=== PATIENT | female | born 1940 | race Caucasian/White ===

== ENCOUNTER 2019-08-15 16:08 | Inpatient (IN) ==
[2019-08-15 17:52] LABS: Apearance,Urine CLEAR (Clear); Bilirubin,Urine Negative (Negative); Blood, Urine Negative (Negative); Glucose,Urine (UA) Negative (Negative); Ketones,Urine Negative (Negative); Mucus,Urine Occasional /LPF (Occasional); Nitrite,Urine Negative (Negative); Protein,Urine Negative; RBC,Urine 1 /HPF (0-4); Squamous Epithelial Cell,Urine Occasional /HPF (0-10); Urine Color Yellow (Yellow); Urine Specific Gravity 1.021 (1.001-1.035); WBC,Urine 1 /HPF (0-6)
[2019-08-15 18:33] LABS: Albumin 2.9 G/DL (3.4-5.0); Bilirubin,Total 0.6 MG/DL (0.2-1.0); Calcium 7.8 MG/DL (8.5-10.1); Osmolality,Calculated 274.8 MOS/KG (273-304); Total Protein 6.8 G/DL (6.4-8.3)
[2019-08-15 18:41] LABS: Basophils % 0.2 % (0.0-0.8); Eosinophils # 0.1 10*3/uL (0.0-0.87); Eosinophils % 0.3 % (0.00-10.9); Hematocrit 33.9 VOL% (35.7-47.0); Hemoglobin 10.6 GM/DL (12.0-16.0); Immature Granulocytes % 0.5 %; Immature Granulocytes Absolute 0.09 #; Lymphocytes # 2.2 10*3/uL (1.4-4.0); Lymphocytes % 12.7 % (21.3-54.2); Mean Corpuscular HGB Conc 31.3 GM/DL (32-36); Mean Corpuscular Volume 89.4 FL (87-102); Mean Platelet Volume 9.4 FL (9.6-12.0); Monocytes % 10.3 % (1.7-12.7); Platelet Count 306 T/CUMM (130-400); Red Blood Count 3.79 MC/CUMM (3.8-5.5); Red Cell Distribution Width 17.7 % (9.3-17.3); White Blood Count 17.1 T/CUMM (4-12)
[2019-08-15] MEDS ORDERED: HYDROmorphone 2 MG/1 ML VIAL IV ONE (18:47)
[2019-08-15] MEDS ORDERED: KETOROLAC 30 MG/1 ML VIAL IV STA (18:47)
[2019-08-15] MEDS ORDERED: ONDANSETRON 4 MG/2 ML VIAL IV STA ×2 (18:47→19:23)
[2019-08-15 20:42] LABS: PT Patient Result 10.7 SECS (9.6-12.2)
[2019-08-15] MEDS ORDERED: METHOCARBAMOL 500 MG TABLET PO PRN (21:27)
[2019-08-15] MEDS ORDERED: ACETAMINOPHEN 325 MG TABLET PO PRN (21:27)
[2019-08-15] MEDS ORDERED: INFLUENZA VIRUS VACCINE 0.5 ML SYRINGE IM ONE (21:52)
[2019-08-15] MEDS: SODIUM CHLORIDE 0.9% 1,000 ML IV SCH (22:24)
[2019-08-15] MEDS: FLUTICASONE 220 MCG/PUFF INHALER 12 GM INH SCH (22:44)
[2019-08-15] MEDS: VENLAFAXINE 75 MG TABLET PO SCH (22:45)
[2019-08-15] MEDS: PRIMIDONE 50 MG TABLET PO SCH (22:45)
[2019-08-15] MEDS: predniSONE 5 MG TABLET PO SCH (22:45)
[2019-08-15] MEDS: THEOPHYLLINE ER 300 MG TABLET PO SCH (22:46)
[2019-08-15] MEDS: SIMVASTATIN 20 MG TABLET PO SCH (22:46)
[2019-08-15] MEDS: MEMANTINE 10 MG TABLET PO SCH (22:46)
[2019-08-15] MEDS: DONEPEZIL 10 MG TABLET PO SCH (22:46)
[2019-08-15] MEDS: CALCIUM (CARBONATE)/VITAMIN D 600 MG-400 UNIT TABLET PO SCH (22:46)
[2019-08-16] MEDS: HYDROmorphone 2 MG/1 ML VIAL IV PRN ×4 (01:29→21:12)
[2019-08-16] MEDS: PROMETHAZINE 25 MG/1 ML VIAL IM PRN (05:25)
[2019-08-16 05:44] LABS: Basophils % 0.1 % (0.0-0.8); Basophils % 0.3 % (0.0-0.8); Eosinophils # 0.2 10*3/uL (0.0-0.87); Eosinophils % 1.1 % (0.00-10.9); Eosinophils % 1.2 % (0.00-10.9); Hematocrit 33.9 VOL% (35.7-47.0); Hemoglobin 10.2 GM/DL (12.0-16.0); Hemoglobin 10.4 GM/DL (12.0-16.0); Immature Granulocytes % 0.5 %; Immature Granulocytes % 1.4 %; Immature Granulocytes Absolute 0.07 #; Lymphocytes # 1.9 10*3/uL (1.4-4.0); Lymphocytes % 13.5 % (21.3-54.2); Lymphocytes % 13.7 % (21.3-54.2); Mean Corpuscular HGB Conc 30.7 GM/DL (32-36); Mean Corpuscular Volume 90.4 FL (87-102); Mean Corpuscular Volume 91.9 FL (87-102); Mean Platelet Volume 10.1 FL (9.6-12.0); Mean Platelet Volume 10.2 FL (9.6-12.0); Monocytes % 10.1 % (1.7-12.7); Monocytes % 10.2 % (1.7-12.7); Neutrophils % 73.8 % (38.7-73.9); Neutrophils % 74.1 % (38.7-73.9); Platelet Count 304 T/CUMM (130-400); Platelet Count 310 T/CUMM (130-400); Red Blood Count 3.75 MC/CUMM (3.8-5.5); Red Cell Distribution Width 17.9 % (9.3-17.3); White Blood Count 14.1 T/CUMM (4-12)
[2019-08-16] MEDS: LEVOTHYROXINE 137 MCG TABLET PO SCH (05:54)
[2019-08-16 06:17] LABS: % Iron Saturation 12.1 % (18-50); Ferritin 17.7 ng/ml (8-252)
[2019-08-16 06:26] LABS: Folate 16.5 NG/ML (5.4-24.0); Vitamin B12 308 PG/ML (211-911)
[2019-08-16 06:30] LABS: Calcium 8.3 MG/DL (8.5-10.1); Osmolality,Calculated 277.7 MOS/KG (273-304); Thyroid Stimulating Hormone 4.15 uIU/ml (0.358-3.74)
[2019-08-16 07:42] LABS: Sedimentation Rate-Westergren 93 MM/HR (0-30)
[2019-08-16] MEDS ORDERED: FOLIC ACID 0.4 MG TABLET PO SCH (09:00)
[2019-08-16] MEDS ORDERED: KRILL OM DHA EPA PHOSPHO AST PO SCH (09:00)
[2019-08-16 11:06] LABS: Hemoglobin A1 (Alkaline) 96.9 % (96.5-98.5); Hemoglobin A2 (Alkaline) 3.1 % (1.5-3.5)
[2019-08-16] MEDS ORDERED: LIDOCAINE 2% 5 ML VIAL ONE ×2 (11:06→11:37)
[2019-08-16] MEDS ORDERED: fentaNYL 100 MCG/2 ML VIAL ONE (12:04)
[2019-08-16] MEDS ORDERED: propofoL 200 MG/20 ML VIAL IV ONE (12:04)
[2019-08-16] MEDS: MULTIVITAMIN (CENTRUM) TABLET PO SCH (13:08)
[2019-08-16] MEDS: THEOPHYLLINE ER 300 MG TABLET PO SCH ×2 (13:08→21:13)
[2019-08-16] MEDS: VENLAFAXINE 75 MG TABLET PO SCH ×2 (13:10→21:14)
[2019-08-16] MEDS: MEMANTINE 10 MG TABLET PO SCH ×2 (13:11→21:15)
[2019-08-16] MEDS: FUROSEMIDE 40 MG TABLET PO SCH (13:11)
[2019-08-16] MEDS: PANTOPRAZOLE 40 MG TABLET PO SCH (13:11)
[2019-08-16] MEDS: PRIMIDONE 50 MG TABLET PO SCH ×2 (13:11→21:13)
[2019-08-16] MEDS: LEVOFLOXACIN INJ 750 MG in PREMIX 1 EACH IV SCH (14:15)
[2019-08-16] MEDS: FOLIC ACID 1 MG TABLET PO SCH (14:17)
[2019-08-16] MEDS: FLUTICASONE 220 MCG/PUFF INHALER 12 GM INH SCH ×2 (16:34→21:14)
[2019-08-16] MEDS: SODIUM CHLORIDE 0.9% 1,000 ML IV SCH (20:59)
[2019-08-16] MEDS: predniSONE 5 MG TABLET PO SCH (21:14)
[2019-08-16] MEDS: CALCIUM (CARBONATE)/VITAMIN D 600 MG-400 UNIT TABLET PO SCH (21:14)
[2019-08-16] MEDS: SIMVASTATIN 20 MG TABLET PO SCH (21:14)
[2019-08-16] MEDS: DONEPEZIL 10 MG TABLET PO SCH (21:14)
[2019-08-16] MEDS: ONDANSETRON 4 MG/2 ML VIAL IV PRN (21:23)
[2019-08-17] MEDS: HYDROmorphone 2 MG/1 ML VIAL IV PRN ×4 (01:11→17:38)
[2019-08-17] MEDS: ONDANSETRON 4 MG/2 ML VIAL IV PRN ×3 (01:13→15:36)
[2019-08-17] MEDS: LEVOTHYROXINE 137 MCG TABLET PO SCH (05:29)
[2019-08-17 05:41] LABS: Basophils # 0.1 10*3/uL (0.0-0.2); Basophils % 0.5 % (0.0-0.8); Eosinophils # 0.2 10*3/uL (0.0-0.87); Hematocrit 35.6 VOL% (35.7-47.0); Hemoglobin 11.1 GM/DL (12.0-16.0); Immature Granulocytes % 0.8 %; Immature Granulocytes Absolute 0.09 #; Lymphocytes % 17.8 % (21.3-54.2); Mean Corpuscular HGB Conc 31.2 GM/DL (32-36); Mean Corpuscular Volume 88.8 FL (87-102); Mean Platelet Volume 9.9 FL (9.6-12.0); Neutrophils % 67.9 % (38.7-73.9); Platelet Count 303 T/CUMM (130-400); Red Blood Count 4.01 MC/CUMM (3.8-5.5); Red Cell Distribution Width 17.1 % (9.3-17.3)
[2019-08-17 06:14] LABS: Calcium 8.5 MG/DL (8.5-10.1); Osmolality,Calculated 261.7 MOS/KG (273-304)
[2019-08-17] MEDS: FOLIC ACID 1 MG TABLET PO SCH (09:15)
[2019-08-17] MEDS: MULTIVITAMIN (CENTRUM) TABLET PO SCH (09:15)
[2019-08-17] MEDS: PANTOPRAZOLE 40 MG TABLET PO SCH (09:15)
[2019-08-17] MEDS: FUROSEMIDE 40 MG TABLET PO SCH (09:16)
[2019-08-17] MEDS: VENLAFAXINE 75 MG TABLET PO SCH ×2 (09:16→21:36)
[2019-08-17] MEDS: THEOPHYLLINE ER 300 MG TABLET PO SCH ×2 (09:16→21:37)
[2019-08-17] MEDS: PRIMIDONE 50 MG TABLET PO SCH ×2 (09:18→21:53)
[2019-08-17] MEDS: MEMANTINE 10 MG TABLET PO SCH ×2 (09:19→21:35)
[2019-08-17] MEDS: FLUTICASONE 220 MCG/PUFF INHALER 12 GM INH SCH ×2 (09:21→21:33)
[2019-08-17] MEDS: POTASSIUM CHLORIDE 20 MEQ/15 ML UDCUP PER TUBE PRN ×3 (09:23→16:27)
[2019-08-17] MEDS: LEVOFLOXACIN INJ 750 MG in PREMIX 1 EACH IV SCH (12:08)
[2019-08-17] MEDS: ALBUTEROL/IPRATROPIUM 3 ML NEB RESP TX SCH ×2 (13:19→20:32)
[2019-08-17] MEDS ORDERED: BISACODYL 5 MG TABLET PO ONE (15:18)
[2019-08-17] MEDS ORDERED: SODIUM PHOSPHATE ENEMA 133 ML BOTTLE RECTAL ONE (15:19)
[2019-08-17] MEDS: DOCUSATE SODIUM 100 MG CAPSULE PO PRN (15:35)
[2019-08-17] MEDS: PROMETHAZINE 25 MG/1 ML VIAL IM PRN (17:40)
[2019-08-17] MEDS: CALCIUM (CARBONATE)/VITAMIN D 600 MG-400 UNIT TABLET PO SCH (21:36)
[2019-08-17] MEDS: predniSONE 5 MG TABLET PO SCH (21:38)
[2019-08-17] MEDS: SIMVASTATIN 20 MG TABLET PO SCH (21:38)
[2019-08-17] MEDS: DONEPEZIL 10 MG TABLET PO SCH (21:40)
[2019-08-18] MEDS: HYDROmorphone 2 MG/1 ML VIAL IV PRN (00:58)
[2019-08-18] MEDS: PROMETHAZINE 25 MG/1 ML VIAL IM PRN (00:59)
[2019-08-18] MEDS: ALBUTEROL/IPRATROPIUM 3 ML NEB RESP TX SCH ×2 (02:31→07:21)
[2019-08-18] MEDS: ONDANSETRON 4 MG/2 ML VIAL IV PRN ×2 (05:09→10:31)
[2019-08-18] MEDS: LEVOTHYROXINE 137 MCG TABLET PO SCH (05:54)
[2019-08-18 07:13] LABS: Basophils % 0.3 % (0.0-0.8); Eosinophils # 0.2 10*3/uL (0.0-0.87); Eosinophils % 1.8 % (0.00-10.9); Hematocrit 35.2 VOL% (35.7-47.0); Lymphocytes # 1.6 10*3/uL (1.4-4.0); Lymphocytes % 17.1 % (21.3-54.2); Mean Corpuscular HGB Conc 31.3 GM/DL (32-36); Mean Corpuscular Volume 88.7 FL (87-102); Mean Platelet Volume 9.5 FL (9.6-12.0); Monocytes % 10.3 % (1.7-12.7); Neutrophils % 69.5 % (38.7-73.9); Platelet Count 342 T/CUMM (130-400); Red Blood Count 3.97 MC/CUMM (3.8-5.5); Red Cell Distribution Width 17.2 % (9.3-17.3); White Blood Count 9.5 T/CUMM (4-12)
[2019-08-18 07:28] LABS: Calcium 8.7 MG/DL (8.5-10.1); Osmolality,Calculated 264.4 MOS/KG (273-304)
[2019-08-18] MEDS: PRIMIDONE 50 MG TABLET PO SCH (08:50)
[2019-08-18] MEDS: PANTOPRAZOLE 40 MG TABLET PO SCH (08:51)
[2019-08-18] MEDS: VENLAFAXINE 75 MG TABLET PO SCH (08:51)
[2019-08-18] MEDS: FOLIC ACID 1 MG TABLET PO SCH (08:51)
[2019-08-18] MEDS: DOCUSATE SODIUM 100 MG CAPSULE PO PRN (08:51)
[2019-08-18] MEDS: FUROSEMIDE 40 MG TABLET PO SCH (08:52)
[2019-08-18] MEDS: MULTIVITAMIN (CENTRUM) TABLET PO SCH (08:52)
[2019-08-18] MEDS: FLUTICASONE 220 MCG/PUFF INHALER 12 GM INH SCH (08:52)
[2019-08-18] MEDS: THEOPHYLLINE ER 300 MG TABLET PO SCH (08:52)
[2019-08-18] MEDS: MEMANTINE 10 MG TABLET PO SCH (08:52)
[2019-08-18] MEDS ORDERED: SODIUM PHOSPHATE ENEMA 133 ML BOTTLE RECTAL ONE (09:08)
[2019-08-18] MEDS ORDERED: BISACODYL 5 MG TABLET PO ONE (11:23)
[2019-08-18 11:45] VITALS: BP 121/68
== END 2019-08-18 13:11 | DRG 477 ==
LOC: EDUNIT# → EDBD → N.ED 16:08 → N.EDINP 20:14 → N.2E 21:26
PROVIDERS: ADMIT Internal Medicine; ATTEND Internal Medicine

== ENCOUNTER 2019-12-11 11:30 | Inpatient (IN) ==
[2019-12-11 12:08] LABS: Basophils # 0.1 10*3/uL (0.0-0.2); Basophils % 0.4 % (0.0-0.8); Eosinophils # 0.1 10*3/uL (0.0-0.87); Eosinophils % 0.7 % (0.00-10.9); Hematocrit 37.7 VOL% (35.7-47.0); Hemoglobin 11.6 GM/DL (12.0-16.0); Immature Granulocytes Absolute 0.14 #; Lymphocytes % 14.5 % (21.3-54.2); Mean Corpuscular HGB Conc 30.8 GM/DL (32-36); Mean Corpuscular Volume 84.3 FL (87-102); Mean Platelet Volume 9.9 FL (9.6-12.0); Monocytes % 8.7 % (1.7-12.7); Neutrophils % 74.7 % (38.7-73.9); Platelet Count 323 T/CUMM (130-400); Red Blood Count 4.47 MC/CUMM (3.8-5.5); Red Cell Distribution Width 19.9 % (9.3-17.3); White Blood Count 13.8 T/CUMM (4-12)
[2019-12-11 12:13] LABS: PT Patient Result 10.4 SECS (9.8-11.9)
[2019-12-11 12:21] LABS: Alanine Aminotransferase 27 U/L (13-56); Albumin 3.2 G/DL (3.4-5.0); Alkaline Phosphatase 119 U/L (45-117); Aspartate Amino Transferase 29 U/L (0-37); Bilirubin,Total < 0.39 MG/DL (0.2-1.0); Blood Urea Nitrogen 15 MG/DL (7-18); Calcium 8.7 MG/DL (8.5-10.1); Estimated Glom Filtration Rate 80 ML/MIN; Glucose 109 MG/DL (74-106); Osmolality,Calculated 271.1 MOS/KG (273-304); Total Protein 7.5 G/DL (6.4-8.3)
[2019-12-11] MEDS ORDERED: HYDROmorphone 2 MG/1 ML VIAL IV STA (12:45)
[2019-12-11] MEDS ORDERED: ONDANSETRON 4 MG/2 ML VIAL IV STA (12:45)
[2019-12-11] MEDS ORDERED: HYDROmorphone 2 MG/1 ML VIAL ONE (12:47)
[2019-12-11] MEDS ORDERED: DEXTROSE 10% 250 ML BAG IV PRN (13:44)
[2019-12-11] MEDS ORDERED: GLUCAGON 1 MG VIAL IM PRN (13:44)
[2019-12-11] MEDS ORDERED: ALUMINUM/MAGNES/SIMETH MAX STR 30 ML UDCUP PO PRN (13:59)
[2019-12-11] MEDS ORDERED: ENOXAPARIN 40 MG/0.4 ML SYRINGE SUBCUT SCH (14:00)
[2019-12-11] MEDS ORDERED: ALBUTEROL 2.5 MG/3 ML NEB RESP TX SCH (15:00)
[2019-12-11] MEDS ORDERED: HYDROmorphone 2 MG/1 ML VIAL IV ONE (15:10)
[2019-12-11] MEDS: ALBUTEROL/IPRATROPIUM 3 ML NEB RESP TX SCH ×2 (15:14→19:09)
[2019-12-11] MEDS: SODIUM CHLORIDE 0.9% 1,000 ML IV SCH (15:15)
[2019-12-11] MEDS ORDERED: ALBUTEROL 2.5 MG/3 ML NEB RESP TX PRN (16:34)
[2019-12-11] MEDS: HYDROmorphone 2 MG/1 ML VIAL IV PRN ×2 (18:30→23:48)
[2019-12-11] MEDS: PRAMIPEXOLE 0.25 MG TABLET PO SCH (21:42)
[2019-12-11] MEDS: DOCUSATE/SENNA 50-8.6 MG TABLET PO SCH (21:42)
[2019-12-11] MEDS: LIDOCAINE 5% PATCH TRANSDERM SCH (21:42)
[2019-12-12] MEDS: SODIUM CHLORIDE 0.9% 1,000 ML IV SCH ×2 (01:43→11:40)
[2019-12-12] MEDS: HYDROmorphone 2 MG/1 ML VIAL IV PRN ×2 (04:37→19:48)
[2019-12-12 06:04] LABS: Calcium 8.1 MG/DL (8.5-10.1)
[2019-12-12 06:47] LABS: Basophils # 0.1 10*3/uL (0.0-0.2); Basophils % 0.4 % (0.0-0.8); Eosinophils # 0.3 10*3/uL (0.0-0.87); Eosinophils % 1.9 % (0.00-10.9); Hemoglobin 10.4 GM/DL (12.0-16.0); Immature Granulocytes % 0.6 %; Immature Granulocytes Absolute 0.09 #; Lymphocytes % 12.7 % (21.3-54.2); Mean Corpuscular HGB Conc 30.6 GM/DL (32-36); Mean Corpuscular Volume 85.2 FL (87-102); Mean Platelet Volume 10.3 FL (9.6-12.0); Monocytes % 10.2 % (1.7-12.7); Neutrophils % 74.2 % (38.7-73.9); Platelet Count 314 T/CUMM (130-400); Red Blood Count 3.99 MC/CUMM (3.8-5.5); Red Cell Distribution Width 20.4 % (9.3-17.3)
[2019-12-12] MEDS ORDERED: BUPIVACAINE SPINAL 0.75% 2 ML AMP SPINAL ONE (06:55)
[2019-12-12] MEDS ORDERED: CLINDAMYCIN INJ 900 MG in PREMIX 1 EACH IV ONE (07:00)
[2019-12-12] MEDS ORDERED: DEXAMETHASONE 4 MG/1 ML VIAL ONE ×2 (07:04→09:50)
[2019-12-12] MEDS ORDERED: BUPIVACAINE MPF 0.25% 30 ML VIAL ONE (07:04)
[2019-12-12] MEDS ORDERED: LACTATED RINGERS 1,000 ML IV SCH (07:30)
[2019-12-12] MEDS: ALBUTEROL/IPRATROPIUM 3 ML NEB RESP TX SCH ×5 (07:35→19:38)
[2019-12-12] MEDS ORDERED: ALBUTEROL 2.5 MG/3 ML NEB RESP TX ONE (08:11)
[2019-12-12] MEDS ORDERED: SUGAMMADEX 200 MG/2 ML VIAL IV ONE (08:40)
[2019-12-12] MEDS ORDERED: PROMETHAZINE 25 MG/1 ML VIAL IM PRN (09:19)
[2019-12-12] MEDS ORDERED: BISACODYL 10 MG SUPP RECTAL PRN (09:19)
[2019-12-12] MEDS ORDERED: HYDROmorphone 2 MG/1 ML VIAL IV PRN (09:24)
[2019-12-12] MEDS ORDERED: ALBUTEROL/IPRATROPIUM 3 ML NEB RESP TX ONE ×2 (09:47→10:15)
[2019-12-12] MEDS ORDERED: SEVOFLURANE 1 UNIT/15 MINUTE INH ONE (09:49)
[2019-12-12] MEDS ORDERED: propofoL 200 MG/20 ML VIAL IV ONE (09:49)
[2019-12-12] MEDS ORDERED: LIDOCAINE 2% 5 ML VIAL ONE (09:49)
[2019-12-12] MEDS ORDERED: ROCURONIUM 100 MG/10 ML VIAL IV ONE (09:50)
[2019-12-12] MEDS ORDERED: LACTATED RINGERS 1,000 ML IV ONE (09:50)
[2019-12-12] MEDS ORDERED: SUCCINYLCHOLINE 200 MG/10 ML VIAL ONE (09:50)
[2019-12-12] MEDS ORDERED: TRANEXAMIC ACID 1,000 MG/10 ML VIAL ONE (09:50)
[2019-12-12] MEDS ORDERED: fentaNYL 100 MCG/2 ML VIAL ONE (09:50)
[2019-12-12] MEDS ORDERED: MIDAZOLAM 2 MG/2 ML VIAL ONE (09:50)
[2019-12-12] MEDS ORDERED: PHENYLEPHRINE 1 MG/10 ML SYRINGE IV ONE (09:50)
[2019-12-12] MEDS ORDERED: ONDANSETRON 4 MG/2 ML VIAL ONE (09:50)
[2019-12-12] MEDS ORDERED: ETOMIDATE 40 MG/20 ML VIAL IV ONE (09:50)
[2019-12-12] MEDS: DOCUSATE/SENNA 50-8.6 MG TABLET PO SCH ×2 (11:41→22:05)
[2019-12-12] MEDS: methylPREDNISolone SOD SUC 40 MG/1 ML VIAL IV SCH ×2 (11:41→19:51)
[2019-12-12] MEDS: PANTOPRAZOLE 40 MG TABLET PO SCH (11:41)
[2019-12-12] MEDS: CLINDAMYCIN INJ 900 MG in PREMIX 1 EACH IV SCH ×2 (15:27→22:07)
[2019-12-12] MEDS: PRAMIPEXOLE 0.25 MG TABLET PO SCH (22:05)
[2019-12-12] MEDS: DOCUSATE SODIUM 100 MG CAPSULE PO SCH (22:05)
[2019-12-12] MEDS: LIDOCAINE 5% PATCH TRANSDERM SCH (22:24)
[2019-12-13] MEDS: methylPREDNISolone SOD SUC 40 MG/1 ML VIAL IV SCH ×2 (03:56→10:02)
[2019-12-13] MEDS: HYDROmorphone 2 MG/1 ML VIAL IV PRN (04:00)
[2019-12-13] MEDS: ONDANSETRON 4 MG/2 ML VIAL IV PRN (04:02)
[2019-12-13] MEDS: ENOXAPARIN 40 MG/0.4 ML SYRINGE SUBCUT SCH (06:10)
[2019-12-13 06:51] LABS: Calcium 7.7 MG/DL (8.5-10.1); Osmolality,Calculated 273.1 MOS/KG (273-304)
[2019-12-13 06:56] LABS: Basophils % 0.2 % (0.0-0.8); Eosinophils # 0.2 10*3/uL (0.0-0.87); Eosinophils % 1.2 % (0.00-10.9); Immature Granulocytes % 0.6 %; Immature Granulocytes Absolute 0.08 #; Lymphocytes % 14.5 % (21.3-54.2); Mean Corpuscular Volume 86.4 FL (87-102); Mean Platelet Volume 10.2 FL (9.6-12.0); Monocytes % 12.7 % (1.7-12.7); Neutrophils % 70.8 % (38.7-73.9); Red Blood Count 3.24 MC/CUMM (3.8-5.5); Red Cell Distribution Width 20.5 % (9.3-17.3); White Blood Count 13.7 T/CUMM (4-12)
[2019-12-13 07:00] LABS: Hemoglobin 8.4 GM/DL (12.0-16.0); Platelet Count 251 T/CUMM (130-400)
[2019-12-13] MEDS: ALBUTEROL/IPRATROPIUM 3 ML NEB RESP TX SCH ×4 (07:08→19:21)
[2019-12-13 08:46] LABS: Hematocrit 28.9 VOL% (35.7-47.0); Hemoglobin 8.7 GM/DL (12.0-16.0)
[2019-12-13] MEDS ORDERED: SODIUM CHLORIDE 0.9% 1,000 ML IV PRN (08:56)
[2019-12-13] MEDS: DOCUSATE/SENNA 50-8.6 MG TABLET PO SCH ×2 (10:01→21:54)
[2019-12-13] MEDS: DOCUSATE SODIUM 100 MG CAPSULE PO SCH ×2 (10:01→21:54)
[2019-12-13] MEDS: PANTOPRAZOLE 40 MG TABLET PO SCH (10:01)
[2019-12-13] MEDS: PRAMIPEXOLE 0.25 MG TABLET PO SCH (21:54)
[2019-12-13] MEDS: LIDOCAINE 5% PATCH TRANSDERM SCH (21:54)
[2019-12-14] MEDS: HYDROmorphone 2 MG/1 ML VIAL IV PRN (01:12)
[2019-12-14] MEDS ORDERED: ONDANSETRON 4 MG TABLET PO PRN (04:06)
[2019-12-14] MEDS ORDERED: MEPERIDINE 25 MG/1 ML VIAL IM PRN (04:08)
[2019-12-14 06:53] LABS: Basophils # 0.1 10*3/uL (0.0-0.2); Basophils % 0.3 % (0.0-0.8); Eosinophils # 0.3 10*3/uL (0.0-0.87); Eosinophils % 2.3 % (0.00-10.9); Hemoglobin 11.6 GM/DL (12.0-16.0); Immature Granulocytes % 1.2 %; Immature Granulocytes Absolute 0.17 #; Lymphocytes # 2.2 10*3/uL (1.4-4.0); Lymphocytes % 15.1 % (21.3-54.2); Mean Corpuscular HGB Conc 30.5 GM/DL (32-36); Mean Corpuscular Volume 87.4 FL (87-102); Mean Platelet Volume 10.1 FL (9.6-12.0); Monocytes % 12.1 % (1.7-12.7); NRBC # 0.05 10*3/uL; Platelet Count 273 T/CUMM (130-400); Red Blood Count 4.35 MC/CUMM (3.8-5.5); Red Cell Distribution Width 19.2 % (9.3-17.3); White Blood Count 14.5 T/CUMM (4-12)
[2019-12-14] MEDS: ENOXAPARIN 40 MG/0.4 ML SYRINGE SUBCUT SCH (07:19)
[2019-12-14] MEDS: ALBUTEROL/IPRATROPIUM 3 ML NEB RESP TX SCH (07:20)
[2019-12-14 07:26] LABS: Calcium 8.5 MG/DL (8.5-10.1); Osmolality,Calculated 265.5 MOS/KG (273-304)
[2019-12-14] MEDS ORDERED: METOPROLOL TARTRATE 25 MG TABLET PO ONE (08:16)
[2019-12-14] MEDS ORDERED: NITROGLYCERIN SL 0.4 MG TABLET SL ONE (08:21)
[2019-12-14] MEDS ORDERED: ASPIRIN 325 MG TABLET ONE (08:25)
[2019-12-14] MEDS ORDERED: ASPIRIN 325 MG TABLET PO ONE (08:25)
[2019-12-14] MEDS ORDERED: METOPROLOL TARTRATE 5 MG/5 ML VIAL IV ONE (08:49)
[2019-12-14] MEDS ORDERED: ALBUTEROL/IPRATROPIUM 3 ML NEB RESP TX PRN (08:51)
[2019-12-14] MEDS ORDERED: AMIODARONE INJ 150 MG in DEXTROSE 5% 100 ML IV ONE (09:32)
[2019-12-14 09:36] LABS: Troponin I 0.114 NG/ML (0.00-0.045)
[2019-12-14] MEDS: DOCUSATE SODIUM 100 MG CAPSULE PO SCH ×2 (10:00→21:14)
[2019-12-14] MEDS: DOCUSATE/SENNA 50-8.6 MG TABLET PO SCH ×2 (10:00→21:13)
[2019-12-14] MEDS: PANTOPRAZOLE 40 MG TABLET PO SCH (10:00)
[2019-12-14] MEDS ORDERED: AMIODARONE INJ 450 MG in DEXTROSE 5% 241 ML IV SCH (10:00)
[2019-12-14] MEDS: BUDESONIDE/FORMOTEROL 160-4.5 INHALER 6 GM INH SCH ×2 (10:46→21:22)
[2019-12-14] MEDS: dilTIAZem Drip 125 MG/125 ML PREMIX IV SCH (11:18)
[2019-12-14] MEDS: LEVOTHYROXINE 137 MCG TABLET PO SCH (11:36)
[2019-12-14 12:04] LABS: Troponin I 0.122 NG/ML (0.00-0.045)
[2019-12-14] MEDS: MAGNESIUM HYDROXIDE SUSP 30 ML UDCUP PO PRN (15:05)
[2019-12-14 15:56] LABS: Troponin I 0.105 NG/ML (0.00-0.045)
[2019-12-14] MEDS: AMIODARONE INJ 450 MG in DEXTROSE 5% 241 ML IV SCH (19:13)
[2019-12-14] MEDS: LIDOCAINE 5% PATCH TRANSDERM SCH (21:12)
[2019-12-14] MEDS: PRAMIPEXOLE 0.25 MG TABLET PO SCH (21:13)
[2019-12-14] MEDS: ATORVASTATIN 40 MG TABLET PO SCH (21:14)
[2019-12-14] MEDS: NICOTINE 14 MG/24 HR PATCH TRANSDERM SCH (21:14)
[2019-12-15] MEDS: ENOXAPARIN 40 MG/0.4 ML SYRINGE SUBCUT SCH (05:31)
[2019-12-15 05:42] LABS: Basophils # 0.1 10*3/uL (0.0-0.2); Basophils % 0.6 % (0.0-0.8); Eosinophils # 0.5 10*3/uL (0.0-0.87); Eosinophils % 4.6 % (0.00-10.9); Hematocrit 38.3 VOL% (35.7-47.0); Hemoglobin 11.9 GM/DL (12.0-16.0); Immature Granulocytes % 0.6 %; Immature Granulocytes Absolute 0.06 #; Lymphocytes # 1.9 10*3/uL (1.4-4.0); Lymphocytes % 19.1 % (21.3-54.2); Mean Corpuscular HGB Conc 31.1 GM/DL (32-36); Mean Corpuscular Volume 86.5 FL (87-102); Mean Platelet Volume 10.3 FL (9.6-12.0); Monocytes % 11.8 % (1.7-12.7); NRBC # 0.05 10*3/uL; Neutrophils % 63.3 % (38.7-73.9); Platelet Count 276 T/CUMM (130-400); Red Blood Count 4.43 MC/CUMM (3.8-5.5); Red Cell Distribution Width 19.9 % (9.3-17.3); White Blood Count 10.1 T/CUMM (4-12)
[2019-12-15 06:20] LABS: Free T4 (Free Thyroxine) 1.13 NG/DL (0.76-1.46); Thyroid Stimulating Hormone 10.4 uIU/ml (0.358-3.74)
[2019-12-15] MEDS: AMIODARONE INJ 450 MG in DEXTROSE 5% 241 ML IV SCH ×2 (07:41→10:20)
[2019-12-15] MEDS: LACTULOSE 20 GM/30 ML UDCUP PO PRN (08:56)
[2019-12-15] MEDS: PANTOPRAZOLE 40 MG TABLET PO SCH (08:56)
[2019-12-15] MEDS: DOCUSATE/SENNA 50-8.6 MG TABLET PO SCH ×2 (08:56→21:07)
[2019-12-15] MEDS: NICOTINE 14 MG/24 HR PATCH TRANSDERM SCH (08:56)
[2019-12-15] MEDS: DOCUSATE SODIUM 100 MG CAPSULE PO SCH ×2 (08:56→21:07)
[2019-12-15] MEDS: LEVOTHYROXINE 137 MCG TABLET PO SCH (08:56)
[2019-12-15] MEDS: BUDESONIDE/FORMOTEROL 160-4.5 INHALER 6 GM INH SCH ×2 (08:57→21:08)
[2019-12-15] MEDS: dilTIAZem Drip 125 MG/125 ML PREMIX IV SCH ×2 (13:28→21:06)
[2019-12-15] MEDS: DILTIAZEM 30 MG TABLET PO SCH (21:06)
[2019-12-15] MEDS: PRAMIPEXOLE 0.25 MG TABLET PO SCH (21:06)
[2019-12-15] MEDS: AMIODARONE 200 MG TABLET PO SCH (21:07)
[2019-12-15] MEDS: LIDOCAINE 5% PATCH TRANSDERM SCH (21:07)
[2019-12-15] MEDS: ATORVASTATIN 40 MG TABLET PO SCH (21:07)
[2019-12-16] MEDS: AMIODARONE INJ 450 MG in DEXTROSE 5% 241 ML IV SCH (01:01)
[2019-12-16] MEDS: diphenhydrAMINE CAP 25 MG CAPSULE PO PRN ×2 (01:04→11:34)
[2019-12-16] MEDS: ENOXAPARIN 40 MG/0.4 ML SYRINGE SUBCUT SCH (06:01)
[2019-12-16 06:20] LABS: Basophils # 0.1 10*3/uL (0.0-0.2); Basophils % 0.8 % (0.0-0.8); Eosinophils # 0.4 10*3/uL (0.0-0.87); Eosinophils % 3.6 % (0.00-10.9); Hematocrit 38.3 VOL% (35.7-47.0); Hemoglobin 11.9 GM/DL (12.0-16.0); Immature Granulocytes % 1.6 %; Immature Granulocytes Absolute 0.17 #; Lymphocytes # 1.7 10*3/uL (1.4-4.0); Lymphocytes % 16.1 % (21.3-54.2); Mean Corpuscular HGB Conc 31.1 GM/DL (32-36); Mean Corpuscular Volume 86.8 FL (87-102); Mean Platelet Volume 10.4 FL (9.6-12.0); Monocytes % 13.6 % (1.7-12.7); NRBC # 0.03 10*3/uL; Neutrophils % 64.3 % (38.7-73.9); Platelet Count 297 T/CUMM (130-400); Red Blood Count 4.41 MC/CUMM (3.8-5.5); Red Cell Distribution Width 20.2 % (9.3-17.3); White Blood Count 10.6 T/CUMM (4-12)
[2019-12-16 06:39] LABS: Calcium 8.4 MG/DL (8.5-10.1); Osmolality,Calculated 265.5 MOS/KG (273-304)
[2019-12-16] MEDS: SODIUM CHLORIDE 0.9% 1,000 ML IV SCH ×4 (08:30→18:25)
[2019-12-16] MEDS: DOCUSATE/SENNA 50-8.6 MG TABLET PO SCH ×2 (08:30→20:56)
[2019-12-16] MEDS: MAGNESIUM HYDROXIDE SUSP 30 ML UDCUP PO PRN (08:30)
[2019-12-16] MEDS: LACTULOSE 20 GM/30 ML UDCUP PO PRN (08:30)
[2019-12-16] MEDS: DILTIAZEM 30 MG TABLET PO SCH ×3 (08:30→20:56)
[2019-12-16] MEDS: DOCUSATE SODIUM 100 MG CAPSULE PO SCH ×2 (08:30→20:55)
[2019-12-16] MEDS: LEVOTHYROXINE 137 MCG TABLET PO SCH (08:30)
[2019-12-16] MEDS: NICOTINE 14 MG/24 HR PATCH TRANSDERM SCH (08:30)
[2019-12-16] MEDS: PANTOPRAZOLE 40 MG TABLET PO SCH (08:30)
[2019-12-16] MEDS: AMIODARONE 200 MG TABLET PO SCH ×2 (08:30→20:55)
[2019-12-16] MEDS: BUDESONIDE/FORMOTEROL 160-4.5 INHALER 6 GM INH SCH ×2 (11:34→21:00)
[2019-12-16] MEDS: HYDROmorphone 2 MG/1 ML VIAL IV PRN (11:35)
[2019-12-16] MEDS: ONDANSETRON 4 MG/2 ML VIAL IV PRN (11:37)
[2019-12-16] MEDS: PRAMIPEXOLE 0.25 MG TABLET PO SCH (20:56)
[2019-12-16] MEDS: ATORVASTATIN 40 MG TABLET PO SCH (20:56)
[2019-12-16] MEDS: LIDOCAINE 5% PATCH TRANSDERM SCH (21:02)
[2019-12-17] MEDS: SODIUM CHLORIDE 0.9% 1,000 ML IV SCH (05:26)
[2019-12-17] MEDS: ENOXAPARIN 40 MG/0.4 ML SYRINGE SUBCUT SCH (05:27)
[2019-12-17 06:38] LABS: Basophils # 0.1 10*3/uL (0.0-0.2); Basophils % 0.5 % (0.0-0.8); Eosinophils # 0.3 10*3/uL (0.0-0.87); Eosinophils % 2.7 % (0.00-10.9); Hematocrit 35.8 VOL% (35.7-47.0); Hemoglobin 10.7 GM/DL (12.0-16.0); Immature Granulocytes % 1.4 %; Immature Granulocytes Absolute 0.15 #; Lymphocytes # 1.9 10*3/uL (1.4-4.0); Lymphocytes % 17.2 % (21.3-54.2); Mean Corpuscular HGB Conc 29.9 GM/DL (32-36); Mean Corpuscular Volume 89.7 FL (87-102); Mean Platelet Volume 9.8 FL (9.6-12.0); Monocytes % 13.2 % (1.7-12.7); NRBC # 0.02 10*3/uL; Platelet Count 294 T/CUMM (130-400); Red Blood Count 3.99 MC/CUMM (3.8-5.5); Red Cell Distribution Width 20.6 % (9.3-17.3); White Blood Count 10.8 T/CUMM (4-12)
[2019-12-17 07:00] LABS: Osmolality,Calculated 270.1 MOS/KG (273-304)
[2019-12-17] MEDS: DOCUSATE SODIUM 100 MG CAPSULE PO SCH ×2 (08:12→21:26)
[2019-12-17] MEDS: LEVOTHYROXINE 137 MCG TABLET PO SCH (08:12)
[2019-12-17] MEDS: PANTOPRAZOLE 40 MG TABLET PO SCH (08:12)
[2019-12-17] MEDS: AMIODARONE 200 MG TABLET PO SCH ×2 (08:13→21:25)
[2019-12-17] MEDS: DOCUSATE/SENNA 50-8.6 MG TABLET PO SCH ×2 (08:13→21:25)
[2019-12-17] MEDS: BUDESONIDE/FORMOTEROL 160-4.5 INHALER 6 GM INH SCH ×2 (08:15→21:29)
[2019-12-17] MEDS: NICOTINE 14 MG/24 HR PATCH TRANSDERM SCH (08:15)
[2019-12-17] MEDS: predniSONE 20 MG TABLET PO SCH (10:32)
[2019-12-17] MEDS: DILTIAZEM 30 MG TABLET PO SCH ×3 (10:32→21:25)
[2019-12-17] MEDS: HYDROmorphone 2 MG/1 ML VIAL IV PRN (10:33)
[2019-12-17] MEDS: ONDANSETRON 4 MG/2 ML VIAL IV PRN (10:34)
[2019-12-17] MEDS: LOSARTAN 50 MG TABLET PO SCH (10:49)
[2019-12-17] MEDS: ATORVASTATIN 40 MG TABLET PO SCH (21:25)
[2019-12-17] MEDS: PRAMIPEXOLE 0.25 MG TABLET PO SCH (21:25)
[2019-12-17] MEDS: LIDOCAINE 5% PATCH TRANSDERM SCH (21:26)
[2019-12-18] MEDS: diphenhydrAMINE CAP 25 MG CAPSULE PO PRN ×2 (01:19→13:26)
[2019-12-18 04:33] LABS: Basophils # 0.1 10*3/uL (0.0-0.2); Basophils % 0.4 % (0.0-0.8); Eosinophils # 0.1 10*3/uL (0.0-0.87); Eosinophils % 0.7 % (0.00-10.9); Hemoglobin 11.5 GM/DL (12.0-16.0); Immature Granulocytes % 1.5 %; Immature Granulocytes Absolute 0.22 #; Lymphocytes # 2.4 10*3/uL (1.4-4.0); Lymphocytes % 16.1 % (21.3-54.2); Mean Corpuscular HGB Conc 30.3 GM/DL (32-36); Monocytes % 11.3 % (1.7-12.7); Platelet Count 318 T/CUMM (130-400); Red Blood Count 4.27 MC/CUMM (3.8-5.5)
[2019-12-18 05:07] LABS: Calcium 8.6 MG/DL (8.5-10.1); Osmolality,Calculated 268.2 MOS/KG (273-304)
[2019-12-18] MEDS: DILTIAZEM 30 MG TABLET PO SCH ×2 (09:41→15:37)
[2019-12-18] MEDS: ENOXAPARIN 40 MG/0.4 ML SYRINGE SUBCUT SCH (09:41)
[2019-12-18] MEDS: NICOTINE 14 MG/24 HR PATCH TRANSDERM SCH (09:41)
[2019-12-18] MEDS: LOSARTAN 50 MG TABLET PO SCH (09:41)
[2019-12-18] MEDS: DOCUSATE SODIUM 100 MG CAPSULE PO SCH (09:41)
[2019-12-18] MEDS: predniSONE 20 MG TABLET PO SCH (09:43)
[2019-12-18] MEDS: BUDESONIDE/FORMOTEROL 160-4.5 INHALER 6 GM INH SCH (09:43)
[2019-12-18] MEDS: LEVOTHYROXINE 137 MCG TABLET PO SCH (09:43)
[2019-12-18] MEDS: AMIODARONE 200 MG TABLET PO SCH (09:43)
[2019-12-18] MEDS: PANTOPRAZOLE 40 MG TABLET PO SCH (09:43)
[2019-12-18] MEDS: DOCUSATE/SENNA 50-8.6 MG TABLET PO SCH (09:43)
[2019-12-18 11:56] VITALS: BP 147/67
[2019-12-18] MEDS: dilTIAZem Drip 125 MG/125 ML PREMIX IV SCH (15:36)
[2019-12-18] MEDS ORDERED: APIXABAN 5 MG TABLET PO SCH (21:00)
== END 2019-12-18 15:41 | disposition swing bed (61) | DRG 469 ==
LOC: EDUNIT# → N.ED 11:30 → N.EDINP 13:44 → SUATTDRO 13:44 → N.3E 16:40 → N.TELEN 12-14 10:40
PROVIDERS: ADMIT Internal Medicine; ATTEND Internal Medicine

== ENCOUNTER 2020-01-28 19:12 | Inpatient (IN) ==
[2020-01-28] MEDS ORDERED: ONDANSETRON 4 MG/2 ML VIAL IV STA (23:43)
[2020-01-28] MEDS ORDERED: PANTOPRAZOLE 40 MG VIAL IV STA (23:45)
[2020-01-29 00:49] LABS: Basophils # 0.1 10*3/uL (0.0-0.2); Basophils % 0.7 % (0.0-0.8); Eosinophils # 0.2 10*3/uL (0.0-0.87); Eosinophils % 1.5 % (0.00-10.9); Hematocrit 39.1 VOL% (35.7-47.0); Hemoglobin 11.8 GM/DL (12.0-16.0); Immature Granulocytes % 3.7 %; Immature Granulocytes Absolute 0.46 #; Lymphocytes # 1.4 10*3/uL (1.4-4.0); Lymphocytes % 11.3 % (21.3-54.2); Mean Corpuscular HGB Conc 30.2 GM/DL (32-36); Mean Corpuscular Volume 91.4 FL (87-102); Monocytes % 12.1 % (1.7-12.7); Neutrophils % 70.7 % (38.7-73.9); Platelet Count 468 T/CUMM (130-400); Red Blood Count 4.28 MC/CUMM (3.8-5.5); Red Cell Distribution Width 22.7 % (9.3-17.3); White Blood Count 12.4 T/CUMM (4-12)
[2020-01-29 00:50] LABS: Alanine Aminotransferase 22 U/L (13-56); Albumin 2.8 G/DL (3.4-5.0); Alkaline Phosphatase 115 U/L (45-117); Aspartate Amino Transferase 20 U/L (0-37); Bilirubin,Total < 0.39 MG/DL (0.2-1.0); Blood Urea Nitrogen 15 MG/DL (7-18); Calcium 8.2 MG/DL (8.5-10.1); Estimated Glom Filtration Rate 60 ML/MIN; Glucose 124 MG/DL (74-106); Osmolality,Calculated 271.1 MOS/KG (273-304); Total Protein 6.7 G/DL (6.4-8.3)
[2020-01-29 01:26] LABS: Apearance,Urine Slightly Hazy (Clear); Bacteria,Urine Occasional /HPF (Few); Bilirubin,Urine Negative (Negative); Blood, Urine Negative (Negative); Glucose,Urine (UA) Negative (Negative); Hyaline Casts,Urine 56 /LPF (0-3); Ketones,Urine Negative (Negative); Mucus,Urine Few /LPF (Occasional); Nitrite,Urine Negative (Negative); Protein,Urine Negative; RBC,Urine 2 /HPF (0-4); Squamous Epithelial Cell,Urine Occasional /HPF (0-10); Urine Color Yellow (Yellow); Urine Specific Gravity 1.049 (1.001-1.035); Urine Urobilinogen < 2.0 EU/DL (0.2-1.0); WBC,Urine 14 /HPF (0-6)
[2020-01-29] MEDS ORDERED: cefTRIAXone 1,000 MG in SODIUM CHLORIDE 0.9% 100 ML IV STA (01:27)
[2020-01-29] MEDS ORDERED: LACTATED RINGERS 1,000 ML IV ONE (02:05)
[2020-01-29 03:22] LABS: Eosinophils 1 % (0-10); Lymphocytes 14 % (20-55); Metamyelocytes 1 %; Segmented Neutrophils 75 % (50-85); Total Cells Counted 100
[2020-01-29 03:26] LABS: Atypical Lymphocytes Few; Platelet Estimate Increased
[2020-01-29 03:27] LABS: Polychromasia 1+
[2020-01-29] MEDS ORDERED: ONDANSETRON 4 MG/2 ML VIAL IV STA (04:00)
[2020-01-29] MEDS ORDERED: POTASSIUM CHLORIDE RIDER 10 MEQ in PREMIX 1 EACH IV PRN (04:20)
[2020-01-29] MEDS ORDERED: MAGNESIUM SULF RIDER 4 GM in PREMIX 1 EACH IV PRN (04:20)
[2020-01-29] MEDS ORDERED: MAGNESIUM SULF RIDER 2 GM in PREMIX 1 EACH IV PRN (04:20)
[2020-01-29] MEDS ORDERED: SODIUM CHLORIDE 0.9% 1,000 ML IV SCH (04:30)
[2020-01-29] MEDS ORDERED: PROMETHAZINE INJ 12.5 MG in SODIUM CHLORIDE 0.9% 50 ML IV ONE (04:59)
[2020-01-29] MEDS ORDERED: hydrALAZINE 20 MG/1 ML VIAL IV PRN (05:12)
[2020-01-29] MEDS ORDERED: PROMETHAZINE 25 MG/1 ML VIAL ONE (05:22)
[2020-01-29] MEDS: LEVOFLOXACIN INJ 750 MG in PREMIX 1 EACH IV SCH (06:00)
[2020-01-29] MEDS: PANTOPRAZOLE 40 MG VIAL IV SCH (10:15)
[2020-01-29] MEDS: AZTREONAM 2,000 MG in SODIUM CHLORIDE 0.9% 100 ML IV SCH ×3 (11:30→21:43)
[2020-01-29] MEDS: ONDANSETRON 4 MG/2 ML VIAL IV PRN ×2 (13:53→21:47)
[2020-01-29] MEDS: PROMETHAZINE INJ 12.5 MG in SODIUM CHLORIDE 0.9% 50 ML IV PRN (15:44)
[2020-01-29] MEDS: POTASSIUM CHLORIDE INJ 40 MEQ in SODIUM CHLORIDE 0.45% 1,000 ML IV SCH (19:11)
[2020-01-30] MEDS: ALBUTEROL INHALER 18 GM INH SCH ×5 (00:44→18:31)
[2020-01-30] MEDS: AZTREONAM 2,000 MG in SODIUM CHLORIDE 0.9% 100 ML IV SCH ×2 (04:10→08:17)
[2020-01-30] MEDS: LEVOFLOXACIN INJ 750 MG in PREMIX 1 EACH IV SCH (05:35)
[2020-01-30 06:16] LABS: Basophils # 0.1 10*3/uL (0.0-0.2); Basophils % 0.5 % (0.0-0.8); Eosinophils # 0.3 10*3/uL (0.0-0.87); Eosinophils % 1.8 % (0.00-10.9); Hematocrit 35.8 VOL% (35.7-47.0); Hemoglobin 10.8 GM/DL (12.0-16.0); Immature Granulocytes % 1.5 %; Immature Granulocytes Absolute 0.22 #; Lymphocytes # 1.1 10*3/uL (1.4-4.0); Lymphocytes % 7.7 % (21.3-54.2); Mean Corpuscular HGB Conc 30.2 GM/DL (32-36); Mean Corpuscular Volume 91.6 FL (87-102); Mean Platelet Volume 9.4 FL (9.6-12.0); Monocytes % 10.6 % (1.7-12.7); Neutrophils % 77.9 % (38.7-73.9); Platelet Count 436 T/CUMM (130-400); Red Blood Count 3.91 MC/CUMM (3.8-5.5); Red Cell Distribution Width 22.8 % (9.3-17.3); White Blood Count 14.6 T/CUMM (4-12)
[2020-01-30 06:42] LABS: Hypochromasia Slight; Platelet Estimate Adequate
[2020-01-30 06:43] LABS: Microcytosis Slight
[2020-01-30] MEDS: PANTOPRAZOLE 40 MG VIAL IV SCH (08:17)
[2020-01-30] MEDS: ONDANSETRON 4 MG/2 ML VIAL IV PRN ×3 (08:17→21:56)
[2020-01-30] MEDS: AZITHROMYCIN INJ 500 MG in SODIUM CHLORIDE 0.9% 250 ML IV SCH (11:19)
[2020-01-30] MEDS: cefTRIAXone 1,000 MG in SYRINGE 1 EACH IV SCH (11:19)
[2020-01-30] MEDS ORDERED: AZITHROMYCIN 250 MG TABLET PO SCH (12:00)
[2020-01-30] MEDS: POTASSIUM CHLORIDE INJ 40 MEQ in SODIUM CHLORIDE 0.45% 1,000 ML IV SCH (14:05)
[2020-01-30] MEDS ORDERED: ALUMINUM/MAGNES/SIMETH MAX STR 30 ML UDCUP PO PRN (16:40)
[2020-01-30] MEDS ORDERED: POLYETHYLENE GLYCOL POWDER 17 GM PACK PO PRN (16:40)
[2020-01-30] MEDS: DONEPEZIL 10 MG TABLET PO SCH (20:43)
[2020-01-30] MEDS: DILTIAZEM 30 MG TABLET PO SCH (20:43)
[2020-01-30] MEDS: PANTOPRAZOLE 40 MG TABLET PO SCH (20:43)
[2020-01-30] MEDS: ATORVASTATIN 40 MG TABLET PO SCH (20:43)
[2020-01-30] MEDS: PRIMIDONE 50 MG TABLET PO SCH (20:44)
[2020-01-30] MEDS: CHOLECALCIFEROL 1,000 UNIT TABLET PO SCH (20:45)
[2020-01-30] MEDS: rOPINIRole 0.25 MG TABLET PO SCH (20:47)
[2020-01-30] MEDS: FOLIC ACID 0.4 MG TABLET PO SCH (20:47)
[2020-01-30] MEDS: VENLAFAXINE 75 MG TABLET PO SCH (20:47)
[2020-01-30] MEDS: THEOPHYLLINE ER 300 MG TABLET PO SCH (20:47)
[2020-01-30] MEDS: traZODone 50 MG TABLET PO SCH (20:47)
[2020-01-30] MEDS: AMIODARONE 200 MG TABLET PO SCH (20:48)
[2020-01-30] MEDS: OMEGA 3 ACID ETHYL ESTERS 1 GM CAPSULE PO SCH (20:48)
[2020-01-30] MEDS: APIXABAN 5 MG TABLET PO SCH (20:48)
[2020-01-30] MEDS: BUDESONIDE/FORMOTEROL 160-4.5 INHALER 6 GM INH SCH (20:48)
[2020-01-30] MEDS: CALCIUM (CARBONATE)/VITAMIN D 600 MG-400 UNIT TABLET PO SCH (20:48)
[2020-01-30] MEDS: predniSONE 5 MG TABLET PO SCH (20:48)
[2020-01-31] MEDS: POTASSIUM CHLORIDE INJ 40 MEQ in SODIUM CHLORIDE 0.45% 1,000 ML IV SCH ×2 (02:54→16:44)
[2020-01-31] MEDS: ALBUTEROL INHALER 18 GM INH SCH ×4 (05:11→18:14)
[2020-01-31] MEDS: DILTIAZEM 30 MG TABLET PO SCH ×3 (05:54→21:07)
[2020-01-31] MEDS: LEVOTHYROXINE 100 MCG TABLET PO SCH (06:01)
[2020-01-31 06:41] LABS: Basophils # 0.1 10*3/uL (0.0-0.2); Basophils % 0.4 % (0.0-0.8); Eosinophils # 0.1 10*3/uL (0.0-0.87); Hematocrit 34.6 VOL% (35.7-47.0); Hemoglobin 10.7 GM/DL (12.0-16.0); Immature Granulocytes % 1.3 %; Immature Granulocytes Absolute 0.17 #; Lymphocytes # 1.6 10*3/uL (1.4-4.0); Lymphocytes % 12.6 % (21.3-54.2); Mean Corpuscular HGB Conc 30.9 GM/DL (32-36); Mean Corpuscular Volume 88.9 FL (87-102); Monocytes % 7.9 % (1.7-12.7); Neutrophils % 76.8 % (38.7-73.9); Platelet Count 362 T/CUMM (130-400); Red Blood Count 3.89 MC/CUMM (3.8-5.5); Red Cell Distribution Width 22.4 % (9.3-17.3); White Blood Count 12.9 T/CUMM (4-12)
[2020-01-31 07:13] LABS: Anisocytosis 2+; Hypochromasia Slight; Ovalocytes Few; Platelet Estimate Normal
[2020-01-31 07:14] LABS: Calcium 8.4 MG/DL (8.5-10.1); Osmolality,Calculated 267.1 MOS/KG (273-304)
[2020-01-31 07:23] LABS: Poikilocytosis Slight
[2020-01-31] MEDS: CHOLECALCIFEROL 1,000 UNIT TABLET PO SCH ×2 (09:23→21:03)
[2020-01-31] MEDS: PRIMIDONE 50 MG TABLET PO SCH ×2 (09:24→21:04)
[2020-01-31] MEDS: rOPINIRole 0.25 MG TABLET PO SCH ×3 (09:24→21:04)
[2020-01-31] MEDS: APIXABAN 5 MG TABLET PO SCH ×2 (09:25→21:03)
[2020-01-31] MEDS: AMIODARONE 200 MG TABLET PO SCH ×2 (09:25→21:04)
[2020-01-31] MEDS: MEMANTINE 10 MG TABLET PO SCH ×2 (09:26→21:10)
[2020-01-31] MEDS: OMEGA 3 ACID ETHYL ESTERS 1 GM CAPSULE PO SCH ×2 (09:26→21:08)
[2020-01-31] MEDS: ASPIRIN EC 81 MG TABLET PO SCH (09:26)
[2020-01-31] MEDS: THEOPHYLLINE ER 300 MG TABLET PO SCH ×2 (09:26→21:03)
[2020-01-31] MEDS: VENLAFAXINE 75 MG TABLET PO SCH ×2 (09:26→21:04)
[2020-01-31] MEDS: LOSARTAN 50 MG TABLET PO SCH (09:26)
[2020-01-31] MEDS: cefTRIAXone 1,000 MG in SYRINGE 1 EACH IV SCH (09:27)
[2020-01-31] MEDS: PANTOPRAZOLE 40 MG VIAL IV SCH (09:28)
[2020-01-31] MEDS: BUDESONIDE/FORMOTEROL 160-4.5 INHALER 6 GM INH SCH ×2 (09:36→21:10)
[2020-01-31] MEDS: AZITHROMYCIN INJ 500 MG in SODIUM CHLORIDE 0.9% 250 ML IV SCH (12:39)
[2020-01-31] MEDS: ONDANSETRON 4 MG/2 ML VIAL IV PRN (14:24)
[2020-01-31] MEDS: PROMETHAZINE INJ 12.5 MG in SODIUM CHLORIDE 0.9% 50 ML IV PRN (18:11)
[2020-01-31] MEDS: FOLIC ACID 0.4 MG TABLET PO SCH (21:03)
[2020-01-31] MEDS: PANTOPRAZOLE 40 MG TABLET PO SCH (21:04)
[2020-01-31] MEDS: ATORVASTATIN 40 MG TABLET PO SCH (21:04)
[2020-01-31] MEDS: traZODone 50 MG TABLET PO SCH (21:07)
[2020-01-31] MEDS: DONEPEZIL 10 MG TABLET PO SCH (21:08)
[2020-01-31] MEDS: predniSONE 5 MG TABLET PO SCH (21:08)
[2020-01-31] MEDS: CALCIUM (CARBONATE)/VITAMIN D 600 MG-400 UNIT TABLET PO SCH (21:08)
[2020-02-01] MEDS: ALBUTEROL INHALER 18 GM INH SCH ×4 (04:47→21:13)
[2020-02-01] MEDS: DILTIAZEM 30 MG TABLET PO SCH ×3 (05:52→20:51)
[2020-02-01] MEDS: LEVOTHYROXINE 100 MCG TABLET PO SCH (06:00)
[2020-02-01 06:19] LABS: Basophils # 0.1 10*3/uL (0.0-0.2); Basophils % 0.5 % (0.0-0.8); Eosinophils # 0.2 10*3/uL (0.0-0.87); Eosinophils % 1.8 % (0.00-10.9); Immature Granulocytes % 2.2 %; Immature Granulocytes Absolute 0.22 #; Lymphocytes # 1.4 10*3/uL (1.4-4.0); Lymphocytes % 13.9 % (21.3-54.2); Mean Corpuscular HGB Conc 30.3 GM/DL (32-36); Mean Corpuscular Volume 91.2 FL (87-102); Mean Platelet Volume 9.4 FL (9.6-12.0); Monocytes % 7.3 % (1.7-12.7); Neutrophils % 74.3 % (38.7-73.9); Platelet Count 351 T/CUMM (130-400); Red Blood Count 3.62 MC/CUMM (3.8-5.5); Red Cell Distribution Width 22.2 % (9.3-17.3); White Blood Count 9.9 T/CUMM (4-12)
[2020-02-01 06:25] LABS: Calcium 8.3 MG/DL (8.5-10.1); Osmolality,Calculated 262.4 MOS/KG (273-304)
[2020-02-01] MEDS: POTASSIUM CHLORIDE INJ 40 MEQ in SODIUM CHLORIDE 0.45% 1,000 ML IV SCH ×2 (06:31→14:37)
[2020-02-01 07:38] LABS: Hypochromasia 3+; Polychromasia Slight
[2020-02-01 07:39] LABS: Platelet Estimate Normal; Spherocytes Few
[2020-02-01] MEDS: PANTOPRAZOLE 40 MG VIAL IV SCH (09:13)
[2020-02-01] MEDS: CHOLECALCIFEROL 1,000 UNIT TABLET PO SCH ×2 (09:14→20:50)
[2020-02-01] MEDS: VENLAFAXINE 75 MG TABLET PO SCH ×2 (09:14→20:53)
[2020-02-01] MEDS: BUDESONIDE/FORMOTEROL 160-4.5 INHALER 6 GM INH SCH ×2 (09:17→21:13)
[2020-02-01] MEDS: APIXABAN 5 MG TABLET PO SCH ×2 (09:17→20:51)
[2020-02-01] MEDS: PRIMIDONE 50 MG TABLET PO SCH ×2 (09:18→20:49)
[2020-02-01] MEDS: ASPIRIN EC 81 MG TABLET PO SCH (09:18)
[2020-02-01] MEDS: LOSARTAN 50 MG TABLET PO SCH (09:18)
[2020-02-01] MEDS: AMIODARONE 200 MG TABLET PO SCH ×2 (09:18→20:51)
[2020-02-01] MEDS: OMEGA 3 ACID ETHYL ESTERS 1 GM CAPSULE PO SCH ×2 (09:19→20:53)
[2020-02-01] MEDS: THEOPHYLLINE ER 300 MG TABLET PO SCH ×2 (09:19→20:48)
[2020-02-01] MEDS: cefTRIAXone 1,000 MG in SYRINGE 1 EACH IV SCH (09:22)
[2020-02-01] MEDS: MEMANTINE 10 MG TABLET PO SCH ×2 (09:22→20:50)
[2020-02-01] MEDS: rOPINIRole 0.25 MG TABLET PO SCH ×3 (09:29→20:48)
[2020-02-01] MEDS: ONDANSETRON 4 MG/2 ML VIAL IV PRN (10:58)
[2020-02-01] MEDS: AZITHROMYCIN INJ 500 MG in SODIUM CHLORIDE 0.9% 250 ML IV SCH (11:00)
[2020-02-01] MEDS: PROMETHAZINE INJ 12.5 MG in SODIUM CHLORIDE 0.9% 50 ML IV PRN (12:54)
[2020-02-01] MEDS ORDERED: ALUM/MAG/SIMETH/LIDO VISC 1:1 30 ML BOTTLE PO ONE (13:47)
[2020-02-01] MEDS: DONEPEZIL 10 MG TABLET PO SCH (20:47)
[2020-02-01] MEDS: FOLIC ACID 0.4 MG TABLET PO SCH (20:47)
[2020-02-01] MEDS: ATORVASTATIN 40 MG TABLET PO SCH (20:48)
[2020-02-01] MEDS: PANTOPRAZOLE 40 MG TABLET PO SCH (20:50)
[2020-02-01] MEDS: predniSONE 5 MG TABLET PO SCH (20:51)
[2020-02-01] MEDS: traZODone 50 MG TABLET PO SCH (20:51)
[2020-02-01] MEDS: CALCIUM (CARBONATE)/VITAMIN D 600 MG-400 UNIT TABLET PO SCH (20:51)
[2020-02-02] MEDS: PROMETHAZINE INJ 12.5 MG in SODIUM CHLORIDE 0.9% 50 ML IV PRN (03:00)
[2020-02-02] MEDS: DILTIAZEM 30 MG TABLET PO SCH ×2 (05:13→13:19)
[2020-02-02] MEDS: POTASSIUM CHLORIDE INJ 40 MEQ in SODIUM CHLORIDE 0.45% 1,000 ML IV SCH (05:14)
[2020-02-02] MEDS: LEVOTHYROXINE 100 MCG TABLET PO SCH (06:05)
[2020-02-02] MEDS: ONDANSETRON 4 MG/2 ML VIAL IV PRN (06:55)
[2020-02-02] MEDS: cefTRIAXone 1,000 MG in SYRINGE 1 EACH IV SCH (09:45)
[2020-02-02] MEDS: CHOLECALCIFEROL 1,000 UNIT TABLET PO SCH (09:45)
[2020-02-02] MEDS: PRIMIDONE 50 MG TABLET PO SCH (09:46)
[2020-02-02] MEDS: APIXABAN 5 MG TABLET PO SCH (09:46)
[2020-02-02] MEDS: AMIODARONE 200 MG TABLET PO SCH (09:48)
[2020-02-02] MEDS: LOSARTAN 50 MG TABLET PO SCH (09:48)
[2020-02-02] MEDS: MEMANTINE 10 MG TABLET PO SCH (09:48)
[2020-02-02] MEDS: VENLAFAXINE 75 MG TABLET PO SCH (09:48)
[2020-02-02] MEDS: OMEGA 3 ACID ETHYL ESTERS 1 GM CAPSULE PO SCH (09:49)
[2020-02-02] MEDS: ASPIRIN EC 81 MG TABLET PO SCH (09:49)
[2020-02-02] MEDS: PANTOPRAZOLE 40 MG VIAL IV SCH (09:49)
[2020-02-02] MEDS: THEOPHYLLINE ER 300 MG TABLET PO SCH (09:49)
[2020-02-02] MEDS: rOPINIRole 0.25 MG TABLET PO SCH (09:49)
[2020-02-02] MEDS: BUDESONIDE/FORMOTEROL 160-4.5 INHALER 6 GM INH SCH (09:51)
[2020-02-02] MEDS: ALBUTEROL INHALER 18 GM INH SCH ×3 (09:51→13:19)
[2020-02-02] MEDS: AZITHROMYCIN INJ 500 MG in SODIUM CHLORIDE 0.9% 250 ML IV SCH (11:11)
[2020-02-02 12:34] VITALS: BP 146/64
== END 2020-02-02 14:16 | disposition home health service (06) | DRG 388 ==
LOC: N.ED 19:12 → N.EDINP 01-29 02:57 → SUATTDRO 01-29 02:57 → N.2E 01-29 11:11 → N.TELEN 01-30 13:03
PROVIDERS: ADMIT Internal Medicine; ATTEND Internal Medicine

== ENCOUNTER 2020-03-18 14:43 | Inpatient (IN) ==
[2020-03-18] MEDS ORDERED: ALBUTEROL/IPRATROPIUM 3 ML NEB RESP TX STA (15:18)
[2020-03-18 15:37] LABS: Basophils # 0.1 10*3/uL (0.0-0.2); Basophils % 0.5 % (0.0-0.8); Eosinophils # 0.1 10*3/uL (0.0-0.87); Eosinophils % 0.6 % (0.00-10.9); Hematocrit 35.2 VOL% (35.7-47.0); Immature Granulocytes % 0.6 %; Immature Granulocytes Absolute 0.06 #; Lymphocytes # 1.5 10*3/uL (1.4-4.0); Lymphocytes % 15.7 % (21.3-54.2); Mean Corpuscular Volume 87.8 FL (87-102); Mean Platelet Volume 9.5 FL (9.6-12.0); Monocytes % 9.9 % (1.7-12.7); Neutrophils % 72.7 % (38.7-73.9); Platelet Count 516 T/CUMM (130-400); Red Blood Count 4.01 MC/CUMM (3.8-5.5); Red Cell Distribution Width 19.2 % (9.3-17.3); White Blood Count 9.4 T/CUMM (4-12)
[2020-03-18 15:44] LABS: Apearance,Urine Slightly Hazy (Clear); Bacteria,Urine Many /HPF (Few); Blood, Urine Negative (Negative); Glucose,Urine (UA) Negative (Negative); Ketones,Urine Negative (Negative); Mucus,Urine Many /LPF (Occasional); Nitrite,Urine Negative (Negative); Protein,Urine 100 MG/DL; Squamous Epithelial Cell,Urine Occasional /HPF (0-10); Urine Color Amber (Yellow); Urine Specific Gravity 1.032 (1.001-1.035); WBC,Urine 86 /HPF (0-6)
[2020-03-18] MEDS ORDERED: SODIUM CHLORIDE 0.9% 500 ML IV STA (15:44)
[2020-03-18 15:46] LABS: Bilirubin,Urine Small mg/dL (Negative)
[2020-03-18] MEDS ORDERED: cefTRIAXone 1,000 MG in SODIUM CHLORIDE 0.9% 100 ML IV STA (15:57)
[2020-03-18 16:09] LABS: Hemoglobin 10.2 GM/DL (12.0-16.0)
[2020-03-18 16:14] LABS: Alanine Aminotransferase 30 U/L (13-56); Albumin 2.4 G/DL (3.4-5.0); Alkaline Phosphatase 116 U/L (45-117); Aspartate Amino Transferase 58 U/L (0-37); Bilirubin,Total < 0.39 MG/DL (0.2-1.0); Blood Urea Nitrogen 17 MG/DL (7-18); Calcium 8.2 MG/DL (8.5-10.1); Estimated Glom Filtration Rate 96 ML/MIN; Glucose 82 MG/DL (74-106); Osmolality,Calculated 275.7 MOS/KG (273-304); Total Protein 6.6 G/DL (6.4-8.3)
[2020-03-18] MEDS ORDERED: ONDANSETRON 4 MG/2 ML VIAL IV STA (16:45)
[2020-03-18] MEDS ORDERED: ONDANSETRON 4 MG/2 ML VIAL ONE (16:46)
[2020-03-18] MEDS ORDERED: DEXTROSE 50% 25 GM/50 ML VIAL IV PRN (18:51)
[2020-03-18] MEDS ORDERED: GLUCAGON 1 MG VIAL IM PRN (18:51)
[2020-03-18] MEDS ORDERED: ALBUTEROL/IPRATROPIUM 3 ML NEB RESP TX PRN (19:11)
[2020-03-18] MEDS ORDERED: ENOXAPARIN 40 MG/0.4 ML SYRINGE SUBCUT SCH (21:00)
[2020-03-18] MEDS ORDERED: NON-FORMULARY MEDICATION (Esomeprazole Magnesium 40 MG) PO SCH (21:00)
[2020-03-18] MEDS ORDERED: PRIMIDONE 250 MG TABLET PO SCH (21:00)
[2020-03-18] MEDS: rOPINIRole 0.25 MG TABLET PO SCH (21:50)
[2020-03-18] MEDS: FOLIC ACID 0.4 MG TABLET PO SCH (21:50)
[2020-03-18] MEDS: THEOPHYLLINE ER 300 MG TABLET PO SCH (21:50)
[2020-03-18] MEDS: AMIODARONE 200 MG TABLET PO SCH (21:50)
[2020-03-18] MEDS: APIXABAN 5 MG TABLET PO SCH (21:50)
[2020-03-18] MEDS: CALCIUM (CARBONATE)/VITAMIN D 600 MG-400 UNIT TABLET PO SCH (21:51)
[2020-03-18] MEDS: DILTIAZEM 30 MG TABLET PO SCH (21:51)
[2020-03-18] MEDS: predniSONE 5 MG TABLET PO SCH (21:51)
[2020-03-18] MEDS: VENLAFAXINE 75 MG TABLET PO SCH (21:51)
[2020-03-18] MEDS: DONEPEZIL 10 MG TABLET PO SCH (21:51)
[2020-03-18] MEDS: traZODone 50 MG TABLET PO SCH (21:51)
[2020-03-18] MEDS: ATORVASTATIN 40 MG TABLET PO SCH (21:52)
[2020-03-18] MEDS: PANTOPRAZOLE 40 MG VIAL IV SCH (21:52)
[2020-03-18] MEDS: BUDESONIDE/FORMOTEROL 160-4.5 INHALER 6 GM INH SCH (21:54)
[2020-03-18] MEDS: ONDANSETRON 4 MG/2 ML VIAL IV PRN (21:55)
[2020-03-19] MEDS: DILTIAZEM 30 MG TABLET PO SCH ×3 (04:39→21:15)
[2020-03-19] MEDS: ONDANSETRON 4 MG/2 ML VIAL IV PRN ×4 (04:51→21:14)
[2020-03-19 06:12] LABS: Alanine Aminotransferase 30 U/L (13-56); Albumin 2.2 G/DL (3.4-5.0); Alkaline Phosphatase 114 U/L (45-117); Aspartate Amino Transferase 60 U/L (0-37); Bilirubin,Total < 0.39 MG/DL (0.2-1.0); Blood Urea Nitrogen 12 MG/DL (7-18); Calcium 8.5 MG/DL (8.5-10.1); Estimated Glom Filtration Rate 94 ML/MIN; Glucose 87 MG/DL (74-106); Osmolality,Calculated 271.8 MOS/KG (273-304); Total Protein 6.4 G/DL (6.4-8.3)
[2020-03-19] MEDS: LEVOTHYROXINE 100 MCG TABLET PO SCH (06:19)
[2020-03-19 06:31] LABS: Basophils % 0.5 % (0.0-0.8); Eosinophils # 0.1 10*3/uL (0.0-0.87); Eosinophils % 0.8 % (0.00-10.9); Hematocrit 34.3 VOL% (35.7-47.0); Hemoglobin 10.1 GM/DL (12.0-16.0); Immature Granulocytes % 0.9 %; Immature Granulocytes Absolute 0.07 #; Lymphocytes # 1.5 10*3/uL (1.4-4.0); Lymphocytes % 19.6 % (21.3-54.2); Mean Corpuscular HGB Conc 29.4 GM/DL (32-36); Mean Corpuscular Volume 87.1 FL (87-102); Mean Platelet Volume 9.6 FL (9.6-12.0); Monocytes % 7.2 % (1.7-12.7); Platelet Count 461 T/CUMM (130-400); Red Blood Count 3.94 MC/CUMM (3.8-5.5); Red Cell Distribution Width 19.3 % (9.3-17.3); White Blood Count 7.5 T/CUMM (4-12)
[2020-03-19 06:50] LABS: Hypochromasia 1+; Microcytosis 1+; Platelet Estimate Adequate
[2020-03-19] MEDS ORDERED: PRIMIDONE 250 MG TABLET PO SCH ×2 (09:00→21:00)
[2020-03-19] MEDS: APIXABAN 5 MG TABLET PO SCH (09:20)
[2020-03-19] MEDS: ASPIRIN EC 81 MG TABLET PO SCH (09:20)
[2020-03-19] MEDS: BUDESONIDE/FORMOTEROL 160-4.5 INHALER 6 GM INH SCH ×2 (09:20→21:16)
[2020-03-19] MEDS: PANTOPRAZOLE 40 MG VIAL IV SCH ×2 (09:20→21:14)
[2020-03-19] MEDS: MEMANTINE 10 MG TABLET PO SCH ×2 (09:20→21:16)
[2020-03-19] MEDS: VENLAFAXINE 75 MG TABLET PO SCH ×2 (09:20→21:15)
[2020-03-19] MEDS: AMIODARONE 200 MG TABLET PO SCH ×2 (09:20→21:15)
[2020-03-19] MEDS: rOPINIRole 0.25 MG TABLET PO SCH ×3 (09:20→21:19)
[2020-03-19] MEDS: THEOPHYLLINE ER 300 MG TABLET PO SCH ×2 (09:21→21:14)
[2020-03-19] MEDS: POTASSIUM CHLORIDE 20 MEQ TABLET PO PRN ×3 (12:07→18:37)
[2020-03-19] MEDS: ATORVASTATIN 40 MG TABLET PO SCH (21:14)
[2020-03-19] MEDS: traZODone 50 MG TABLET PO SCH (21:14)
[2020-03-19] MEDS: FOLIC ACID 0.4 MG TABLET PO SCH (21:14)
[2020-03-19] MEDS: predniSONE 5 MG TABLET PO SCH (21:15)
[2020-03-19] MEDS: DONEPEZIL 10 MG TABLET PO SCH (21:15)
[2020-03-19] MEDS: CALCIUM (CARBONATE)/VITAMIN D 600 MG-400 UNIT TABLET PO SCH (21:15)
[2020-03-19] MEDS: MECLIZINE 25 MG TABLET PO SCH (21:16)
[2020-03-20] MEDS: ONDANSETRON 4 MG/2 ML VIAL IV PRN ×5 (01:20→20:50)
[2020-03-20 05:44] LABS: Basophils % 0.4 % (0.0-0.8); Eosinophils % 0.4 % (0.00-10.9); Hematocrit 32.7 VOL% (35.7-47.0); Hemoglobin 9.8 GM/DL (12.0-16.0); Immature Granulocytes % 0.6 %; Immature Granulocytes Absolute 0.04 #; Lymphocytes # 1.5 10*3/uL (1.4-4.0); Lymphocytes % 21.6 % (21.3-54.2); Mean Corpuscular Volume 84.9 FL (87-102); Mean Platelet Volume 9.4 FL (9.6-12.0); Monocytes % 8.9 % (1.7-12.7); Neutrophils % 68.1 % (38.7-73.9); Platelet Count 445 T/CUMM (130-400); Red Blood Count 3.85 MC/CUMM (3.8-5.5); White Blood Count 6.9 T/CUMM (4-12)
[2020-03-20 05:45] LABS: Calcium 8.4 MG/DL (8.5-10.1); Osmolality,Calculated 266.1 MOS/KG (273-304)
[2020-03-20] MEDS: DILTIAZEM 30 MG TABLET PO SCH ×3 (06:23→20:07)
[2020-03-20] MEDS: LEVOTHYROXINE 100 MCG TABLET PO SCH (06:24)
[2020-03-20] MEDS: LACTATED RINGERS 1,000 ML IV SCH (07:48)
[2020-03-20] MEDS ORDERED: ONDANSETRON 4 MG/2 ML VIAL IV ONE (07:51)
[2020-03-20] MEDS ORDERED: LIDOCAINE 2% 5 ML VIAL ONE (09:00)
[2020-03-20] MEDS ORDERED: propofoL 200 MG/20 ML VIAL IV ONE (09:00)
[2020-03-20] MEDS: MECLIZINE 25 MG TABLET PO SCH ×3 (09:37→20:08)
[2020-03-20] MEDS: AMIODARONE 200 MG TABLET PO SCH ×2 (09:37→20:08)
[2020-03-20] MEDS: THEOPHYLLINE ER 300 MG TABLET PO SCH ×2 (09:37→20:06)
[2020-03-20] MEDS: MEMANTINE 10 MG TABLET PO SCH ×2 (09:37→20:09)
[2020-03-20] MEDS: VENLAFAXINE 75 MG TABLET PO SCH ×2 (09:37→20:07)
[2020-03-20] MEDS: BUDESONIDE/FORMOTEROL 160-4.5 INHALER 6 GM INH SCH ×2 (09:38→20:50)
[2020-03-20] MEDS: ASPIRIN EC 81 MG TABLET PO SCH (09:42)
[2020-03-20] MEDS: PANTOPRAZOLE 40 MG VIAL IV SCH ×2 (09:42→20:09)
[2020-03-20] MEDS: rOPINIRole 0.25 MG TABLET PO SCH ×3 (11:28→20:07)
[2020-03-20] MEDS ORDERED: PROMETHAZINE INJ 12.5 MG in SODIUM CHLORIDE 0.9% 50 ML IV ONE (14:30)
[2020-03-20] MEDS: FOLIC ACID 0.4 MG TABLET PO SCH (20:06)
[2020-03-20] MEDS: predniSONE 5 MG TABLET PO SCH (20:08)
[2020-03-20] MEDS: ATORVASTATIN 40 MG TABLET PO SCH (20:08)
[2020-03-20] MEDS: traZODone 50 MG TABLET PO SCH (20:08)
[2020-03-20] MEDS: CALCIUM (CARBONATE)/VITAMIN D 600 MG-400 UNIT TABLET PO SCH (20:08)
[2020-03-20] MEDS: DONEPEZIL 10 MG TABLET PO SCH (20:09)
[2020-03-21] MEDS: ONDANSETRON 4 MG/2 ML VIAL IV PRN ×2 (01:15→09:15)
[2020-03-21 05:27] LABS: Basophils % 0.3 % (0.0-0.8); Eosinophils % 0.2 % (0.00-10.9); Hemoglobin 10.4 GM/DL (12.0-16.0); Immature Granulocytes % 0.5 %; Immature Granulocytes Absolute 0.04 #; Lymphocytes # 1.7 10*3/uL (1.4-4.0); Lymphocytes % 18.8 % (21.3-54.2); Mean Corpuscular HGB Conc 29.7 GM/DL (32-36); Mean Corpuscular Volume 83.3 FL (87-102); Monocytes % 8.6 % (1.7-12.7); Neutrophils % 71.6 % (38.7-73.9); Platelet Count 450 T/CUMM (130-400); Red Cell Distribution Width 18.7 % (9.3-17.3); White Blood Count 8.8 T/CUMM (4-12)
[2020-03-21] MEDS: DILTIAZEM 30 MG TABLET PO SCH ×3 (05:51→21:26)
[2020-03-21] MEDS: LEVOTHYROXINE 100 MCG TABLET PO SCH (05:53)
[2020-03-21 05:56] LABS: Calcium 8.5 MG/DL (8.5-10.1); Osmolality,Calculated 255.8 MOS/KG (273-304)
[2020-03-21] MEDS: LACTATED RINGERS 1,000 ML IV SCH (07:45)
[2020-03-21] MEDS: PANTOPRAZOLE 40 MG VIAL IV SCH ×2 (09:17→21:30)
[2020-03-21] MEDS ORDERED: HALOPERIDOL 5 MG/ML AMP IV ONE (12:37)
[2020-03-21] MEDS: ASPIRIN EC 81 MG TABLET PO SCH (12:47)
[2020-03-21] MEDS: rOPINIRole 0.25 MG TABLET PO SCH ×4 (12:47→21:26)
[2020-03-21] MEDS: VENLAFAXINE 75 MG TABLET PO SCH ×2 (12:47→21:26)
[2020-03-21] MEDS: THEOPHYLLINE ER 300 MG TABLET PO SCH ×2 (12:48→21:26)
[2020-03-21] MEDS: MECLIZINE 25 MG TABLET PO SCH ×3 (12:48→21:27)
[2020-03-21] MEDS: AMIODARONE 200 MG TABLET PO SCH ×2 (12:48→21:27)
[2020-03-21] MEDS: BUDESONIDE/FORMOTEROL 160-4.5 INHALER 6 GM INH SCH ×2 (12:48→21:34)
[2020-03-21] MEDS: MEMANTINE 10 MG TABLET PO SCH ×2 (12:48→21:26)
[2020-03-21] MEDS ORDERED: ZIPRASIDONE 20 MG/1 ML VIAL IM ONE (14:21)
[2020-03-21] MEDS: FOLIC ACID 0.4 MG TABLET PO SCH (21:26)
[2020-03-21] MEDS: CALCIUM (CARBONATE)/VITAMIN D 600 MG-400 UNIT TABLET PO SCH (21:26)
[2020-03-21] MEDS: ATORVASTATIN 40 MG TABLET PO SCH (21:26)
[2020-03-21] MEDS: DONEPEZIL 10 MG TABLET PO SCH (21:27)
[2020-03-21] MEDS: traZODone 50 MG TABLET PO SCH (21:27)
[2020-03-22 05:26] LABS: Basophils # 0.1 10*3/uL (0.0-0.2); Basophils % 0.6 % (0.0-0.8); Eosinophils # 0.1 10*3/uL (0.0-0.87); Eosinophils % 0.7 % (0.00-10.9); Hematocrit 36.7 VOL% (35.7-47.0); Hemoglobin 10.9 GM/DL (12.0-16.0); Immature Granulocytes % 0.5 %; Immature Granulocytes Absolute 0.05 #; Lymphocytes # 1.8 10*3/uL (1.4-4.0); Mean Corpuscular HGB Conc 29.7 GM/DL (32-36); Mean Corpuscular Volume 84.8 FL (87-102); Mean Platelet Volume 9.6 FL (9.6-12.0); Monocytes % 10.5 % (1.7-12.7); Neutrophils % 69.7 % (38.7-73.9); Platelet Count 497 T/CUMM (130-400); Red Blood Count 4.33 MC/CUMM (3.8-5.5); Red Cell Distribution Width 18.8 % (9.3-17.3); White Blood Count 9.8 T/CUMM (4-12)
[2020-03-22] MEDS: DILTIAZEM 30 MG TABLET PO SCH ×3 (06:01→20:10)
[2020-03-22] MEDS: LEVOTHYROXINE 100 MCG TABLET PO SCH (06:01)
[2020-03-22 06:02] LABS: Calcium 8.8 MG/DL (8.5-10.1)
[2020-03-22] MEDS: PANTOPRAZOLE 40 MG VIAL IV SCH ×2 (09:25→20:09)
[2020-03-22] MEDS: APIXABAN 5 MG TABLET PO SCH ×2 (09:26→20:10)
[2020-03-22] MEDS: MEMANTINE 10 MG TABLET PO SCH ×2 (09:26→20:10)
[2020-03-22] MEDS: BUDESONIDE/FORMOTEROL 160-4.5 INHALER 6 GM INH SCH ×2 (09:26→21:14)
[2020-03-22] MEDS: AMIODARONE 200 MG TABLET PO SCH ×2 (09:26→20:13)
[2020-03-22] MEDS: rOPINIRole 0.25 MG TABLET PO SCH ×3 (09:26→20:10)
[2020-03-22] MEDS: VENLAFAXINE 75 MG TABLET PO SCH ×2 (09:26→20:13)
[2020-03-22] MEDS: ASPIRIN EC 81 MG TABLET PO SCH (09:26)
[2020-03-22] MEDS: THEOPHYLLINE ER 300 MG TABLET PO SCH ×2 (09:26→20:10)
[2020-03-22] MEDS: DONEPEZIL 10 MG TABLET PO SCH (20:10)
[2020-03-22] MEDS: ATORVASTATIN 40 MG TABLET PO SCH (20:10)
[2020-03-22] MEDS: traZODone 50 MG TABLET PO SCH (20:10)
[2020-03-22] MEDS: FOLIC ACID 0.4 MG TABLET PO SCH (20:10)
[2020-03-22] MEDS: CALCIUM (CARBONATE)/VITAMIN D 600 MG-400 UNIT TABLET PO SCH (20:13)
[2020-03-22] MEDS ORDERED: MIRTAZAPINE 15 MG TABLET PO SCH (21:00)
[2020-03-23] MEDS ORDERED: FUROSEMIDE 40 MG/4 ML VIAL ONE (04:54)
[2020-03-23] MEDS ORDERED: FUROSEMIDE 40 MG/4 ML VIAL IV ONE (04:55)
[2020-03-23 05:20] LABS: ABG Base Excess -1.1 MMOL/L (-2.5-2.5); ABG HCO3 24.2 MMOL/L (20-26); ABG Oxygen Saturation 98.9 % (95-100); ABG PH 7.369 (7.35-7.45); ABG PO2 174.8 MM HG (80-95); ABG TCO2 25.6 MMOL/L (23-27)
[2020-03-23] MEDS: ONDANSETRON 4 MG/2 ML VIAL IV PRN (05:49)
[2020-03-23] MEDS: DILTIAZEM 30 MG TABLET PO SCH ×2 (05:50→08:54)
[2020-03-23] MEDS: LEVOTHYROXINE 100 MCG TABLET PO SCH ×2 (05:50→08:54)
[2020-03-23 06:20] LABS: Basophils # 0.1 10*3/uL (0.0-0.2); Basophils % 0.4 % (0.0-0.8); Eosinophils % 0.1 % (0.00-10.9); Hematocrit 38.1 VOL% (35.7-47.0); Hemoglobin 11.4 GM/DL (12.0-16.0); Immature Granulocytes % 0.4 %; Immature Granulocytes Absolute 0.06 #; Lymphocytes # 0.5 10*3/uL (1.4-4.0); Lymphocytes % 3.5 % (21.3-54.2); Mean Corpuscular HGB Conc 29.9 GM/DL (32-36); Mean Corpuscular Volume 85.8 FL (87-102); Mean Platelet Volume 9.2 FL (9.6-12.0); Monocytes % 8.3 % (1.7-12.7); Neutrophils % 87.3 % (38.7-73.9); Platelet Count 489 T/CUMM (130-400); Red Blood Count 4.44 MC/CUMM (3.8-5.5); Red Cell Distribution Width 19.5 % (9.3-17.3); White Blood Count 13.5 T/CUMM (4-12)
[2020-03-23 06:38] LABS: Band Neutrophils 1 % (0-10); Lymphocytes 3 % (20-55); Platelet Estimate Adequate; Segmented Neutrophils 90 % (50-85); Total Cells Counted 100
[2020-03-23 06:39] LABS: Hypochromasia Slight
[2020-03-23 06:45] LABS: Albumin 2.5 G/DL (3.4-5.0); Bilirubin,Total 0.5 MG/DL (0.2-1.0); Calcium 8.8 MG/DL (8.5-10.1); Osmolality,Calculated 268.1 MOS/KG (273-304); Total Protein 7.3 G/DL (6.4-8.3)
[2020-03-23] MEDS: PANTOPRAZOLE 40 MG VIAL IV SCH ×2 (10:05→20:32)
[2020-03-23] MEDS: ASPIRIN EC 81 MG TABLET PO SCH (10:09)
[2020-03-23] MEDS: THEOPHYLLINE ER 300 MG TABLET PO SCH ×2 (10:09→20:32)
[2020-03-23] MEDS: AMIODARONE 200 MG TABLET PO SCH ×2 (10:10→20:32)
[2020-03-23] MEDS: APIXABAN 5 MG TABLET PO SCH ×2 (10:10→20:32)
[2020-03-23] MEDS: MEMANTINE 10 MG TABLET PO SCH (10:11)
[2020-03-23] MEDS: BUDESONIDE/FORMOTEROL 160-4.5 INHALER 6 GM INH SCH ×2 (10:11→20:33)
[2020-03-23] MEDS: VENLAFAXINE 75 MG TABLET PO SCH (10:11)
[2020-03-23] MEDS: rOPINIRole 0.25 MG TABLET PO SCH (10:12)
[2020-03-23] MEDS ORDERED: SODIUM CHLORIDE 0.9% 250 ML IV ONE (11:13)
[2020-03-23] MEDS ORDERED: NOREPINEPHRINE 8 MG in SODIUM CHLORIDE 0.9% 242 ML IV PRN (11:14)
[2020-03-23] MEDS: methylPREDNISolone SOD SUC 40 MG/1 ML VIAL IV SCH ×2 (11:28→20:32)
[2020-03-23] MEDS: CLINDAMYCIN INJ 300 MG in PREMIX 1 EACH IV SCH ×2 (11:30→20:31)
[2020-03-23] MEDS: FOLIC ACID 0.4 MG TABLET PO SCH (20:32)
[2020-03-23] MEDS: CALCIUM (CARBONATE)/VITAMIN D 600 MG-400 UNIT TABLET PO SCH (20:32)
[2020-03-23] MEDS: ATORVASTATIN 40 MG TABLET PO SCH (20:33)
[2020-03-24 03:34] LABS: ABG Base Excess 5.1 MMOL/L (-2.5-2.5); ABG Oxygen Saturation 97.6 % (95-100); ABG PCO2 53.6 MM HG (35-48); ABG PH 7.379 (7.35-7.45); ABG TCO2 28.1 MMOL/L (23-27); Allen Test Positive; Pt O2 Delivery Device BIPAP
[2020-03-24] MEDS: methylPREDNISolone SOD SUC 40 MG/1 ML VIAL IV SCH ×3 (03:58→20:36)
[2020-03-24] MEDS: CLINDAMYCIN INJ 300 MG in PREMIX 1 EACH IV SCH ×3 (03:59→21:04)
[2020-03-24 04:54] LABS: Basophils % 0.1 % (0.0-0.8); Hematocrit 38.3 VOL% (35.7-47.0); Hemoglobin 11.5 GM/DL (12.0-16.0); Immature Granulocytes % 0.7 %; Lymphocytes # 0.7 10*3/uL (1.4-4.0); Lymphocytes % 4.4 % (21.3-54.2); Mean Corpuscular Volume 85.3 FL (87-102); Mean Platelet Volume 9.4 FL (9.6-12.0); Monocytes % 4.7 % (1.7-12.7); Neutrophils % 90.1 % (38.7-73.9); Platelet Count 486 T/CUMM (130-400); Red Blood Count 4.49 MC/CUMM (3.8-5.5); Red Cell Distribution Width 19.3 % (9.3-17.3)
[2020-03-24 05:12] LABS: Albumin 2.3 G/DL (3.4-5.0); Bilirubin,Total 0.5 MG/DL (0.2-1.0); Calcium 8.7 MG/DL (8.5-10.1); Osmolality,Calculated 278.7 MOS/KG (273-304); Total Protein 7.6 G/DL (6.4-8.3)
[2020-03-24 05:18] LABS: Hypochromasia 1+; Lymphocytes 5 % (20-55); Microcytosis Slight; Platelet Estimate Adequate; Segmented Neutrophils 92 % (50-85); Total Cells Counted 100
[2020-03-24] MEDS: LEVOTHYROXINE 100 MCG TABLET PO SCH (06:11)
[2020-03-24] MEDS: THEOPHYLLINE ER 300 MG TABLET PO SCH ×2 (08:27→20:38)
[2020-03-24] MEDS: APIXABAN 5 MG TABLET PO SCH ×2 (08:27→20:37)
[2020-03-24] MEDS: PANTOPRAZOLE 40 MG VIAL IV SCH ×2 (08:27→20:37)
[2020-03-24] MEDS: AMIODARONE 200 MG TABLET PO SCH ×2 (08:27→20:37)
[2020-03-24] MEDS: POTASSIUM CHLORIDE 20 MEQ TABLET PO PRN ×3 (08:27→11:57)
[2020-03-24] MEDS: ASPIRIN EC 81 MG TABLET PO SCH (08:28)
[2020-03-24] MEDS: BUDESONIDE/FORMOTEROL 160-4.5 INHALER 6 GM INH SCH ×2 (08:28→21:04)
[2020-03-24] MEDS: ONDANSETRON 4 MG/2 ML VIAL IV PRN ×2 (16:14→22:37)
[2020-03-24] MEDS: FOLIC ACID 0.4 MG TABLET PO SCH (20:37)
[2020-03-24] MEDS: CALCIUM (CARBONATE)/VITAMIN D 600 MG-400 UNIT TABLET PO SCH (20:38)
[2020-03-24] MEDS: ATORVASTATIN 40 MG TABLET PO SCH (20:38)
[2020-03-24] MEDS ORDERED: LORazepam 2 MG/1 ML VIAL IV ONE (23:40)
[2020-03-25] MEDS: CLINDAMYCIN INJ 300 MG in PREMIX 1 EACH IV SCH ×2 (04:16→11:42)
[2020-03-25] MEDS: methylPREDNISolone SOD SUC 40 MG/1 ML VIAL IV SCH ×3 (04:16→20:29)
[2020-03-25 05:22] LABS: Basophils % 0.1 % (0.0-0.8); Hematocrit 33.5 VOL% (35.7-47.0); Hemoglobin 10.3 GM/DL (12.0-16.0); Immature Granulocytes % 0.7 %; Immature Granulocytes Absolute 0.11 #; Lymphocytes # 0.9 10*3/uL (1.4-4.0); Lymphocytes % 5.6 % (21.3-54.2); Mean Corpuscular HGB Conc 30.7 GM/DL (32-36); Mean Corpuscular Volume 82.9 FL (87-102); Monocytes % 5.4 % (1.7-12.7); Neutrophils % 88.2 % (38.7-73.9); Platelet Count 444 T/CUMM (130-400); Red Blood Count 4.04 MC/CUMM (3.8-5.5); Red Cell Distribution Width 19.2 % (9.3-17.3); White Blood Count 15.3 T/CUMM (4-12)
[2020-03-25 05:57] LABS: Calcium 8.7 MG/DL (8.5-10.1); Osmolality,Calculated 267.8 MOS/KG (273-304)
[2020-03-25] MEDS: LEVOTHYROXINE 100 MCG TABLET PO SCH (06:07)
[2020-03-25] MEDS: ONDANSETRON 4 MG/2 ML VIAL IV PRN ×3 (08:56→18:36)
[2020-03-25] MEDS: THEOPHYLLINE ER 300 MG TABLET PO SCH ×2 (09:05→20:31)
[2020-03-25] MEDS: ASPIRIN EC 81 MG TABLET PO SCH (09:06)
[2020-03-25] MEDS: AMIODARONE 200 MG TABLET PO SCH ×2 (09:06→20:30)
[2020-03-25] MEDS: APIXABAN 5 MG TABLET PO SCH ×2 (09:06→20:30)
[2020-03-25] MEDS: PANTOPRAZOLE 40 MG VIAL IV SCH ×2 (09:08→20:32)
[2020-03-25] MEDS: BUDESONIDE/FORMOTEROL 160-4.5 INHALER 6 GM INH SCH ×2 (09:11→20:33)
[2020-03-25] MEDS: DILTIAZEM CD 120 MG CAPSULE PO SCH (13:41)
[2020-03-25] MEDS ORDERED: rOPINIRole 0.25 MG TABLET PO ONE (13:56)
[2020-03-25] MEDS: rOPINIRole 0.25 MG TABLET PO SCH ×2 (14:15→20:30)
[2020-03-25] MEDS: CLINDAMYCIN 300 MG CAPSULE PO SCH ×2 (14:15→21:25)
[2020-03-25] MEDS ORDERED: LORazepam 2 MG/1 ML VIAL IV ONE (20:10)
[2020-03-25] MEDS: CALCIUM (CARBONATE)/VITAMIN D 600 MG-400 UNIT TABLET PO SCH (20:30)
[2020-03-25] MEDS: ATORVASTATIN 40 MG TABLET PO SCH (20:30)
[2020-03-25] MEDS: FOLIC ACID 0.4 MG TABLET PO SCH (20:33)
[2020-03-26] MEDS: methylPREDNISolone SOD SUC 40 MG/1 ML VIAL IV SCH (03:43)
[2020-03-26 04:24] LABS: Basophils % 0.1 % (0.0-0.8); Hematocrit 31.8 VOL% (35.7-47.0); Immature Granulocytes % 1.3 %; Immature Granulocytes Absolute 0.18 #; Lymphocytes # 0.6 10*3/uL (1.4-4.0); Lymphocytes % 4.4 % (21.3-54.2); Mean Corpuscular HGB Conc 31.4 GM/DL (32-36); Mean Corpuscular Volume 81.5 FL (87-102); Mean Platelet Volume 10.6 FL (9.6-12.0); Monocytes % 7.5 % (1.7-12.7); Neutrophils % 86.7 % (38.7-73.9); Platelet Count 410 T/CUMM (130-400); White Blood Count 13.9 T/CUMM (4-12)
[2020-03-26 04:43] LABS: Calcium 8.9 MG/DL (8.5-10.1); Osmolality,Calculated 264.8 MOS/KG (273-304)
[2020-03-26 04:49] LABS: Band Neutrophils 3 % (0-10); Eosinophils 1 % (0-10); Lymphocytes 4 % (20-55); Platelet Estimate Increased; Segmented Neutrophils 87 % (50-85); Total Cells Counted 100
[2020-03-26] MEDS: CLINDAMYCIN 300 MG CAPSULE PO SCH ×3 (05:46→21:06)
[2020-03-26] MEDS: LEVOTHYROXINE 100 MCG TABLET PO SCH (05:46)
[2020-03-26] MEDS: PANTOPRAZOLE 40 MG VIAL IV SCH ×2 (10:05→21:06)
[2020-03-26] MEDS: DILTIAZEM CD 120 MG CAPSULE PO SCH (10:05)
[2020-03-26] MEDS: AMIODARONE 200 MG TABLET PO SCH ×2 (10:06→21:05)
[2020-03-26] MEDS: THEOPHYLLINE ER 300 MG TABLET PO SCH ×2 (10:06→21:06)
[2020-03-26] MEDS: APIXABAN 5 MG TABLET PO SCH ×2 (10:06→21:05)
[2020-03-26] MEDS: rOPINIRole 0.25 MG TABLET PO SCH ×3 (10:06→21:06)
[2020-03-26] MEDS: POLYETHYLENE GLYCOL POWDER 17 GM PACK PO SCH ×2 (10:07→21:07)
[2020-03-26] MEDS: BUDESONIDE/FORMOTEROL 160-4.5 INHALER 6 GM INH SCH (10:07)
[2020-03-26] MEDS: ASPIRIN EC 81 MG TABLET PO SCH (10:07)
[2020-03-26] MEDS: ALBUTEROL/IPRATROPIUM 3 ML NEB RESP TX SCH ×4 (10:39→23:28)
[2020-03-26] MEDS: ONDANSETRON 4 MG/2 ML VIAL IV PRN ×3 (11:39→23:05)
[2020-03-26] MEDS ORDERED: FUROSEMIDE 40 MG/4 ML VIAL IV ONE (11:43)
[2020-03-26 15:12] LABS: ABG HCO3 31.4 MMOL/L (20-26); ABG PH 7.499 (7.35-7.45); ABG PO2 48.2 MM HG (80-95); ABG TCO2 28.7 MMOL/L (23-27)
[2020-03-26] MEDS: ACETAMINOPHEN 325 MG TABLET PO PRN (16:19)
[2020-03-26] MEDS: BUDESONIDE 0.5 MG/2 ML NEB RESP TX SCH (19:26)
[2020-03-26] MEDS: CALCIUM (CARBONATE)/VITAMIN D 600 MG-400 UNIT TABLET PO SCH (21:05)
[2020-03-26] MEDS: FOLIC ACID 0.4 MG TABLET PO SCH (21:05)
[2020-03-26] MEDS: ATORVASTATIN 40 MG TABLET PO SCH (21:06)
[2020-03-26] MEDS: ACETYLCYSTEINE 20% 800 MG/4 ML VIAL RESP TX SCH (23:27)
[2020-03-27] MEDS: PROMETHAZINE 25 MG/1 ML VIAL IM PRN ×2 (00:45→08:49)
[2020-03-27] MEDS: ALBUTEROL/IPRATROPIUM 3 ML NEB RESP TX SCH ×6 (03:28→23:18)
[2020-03-27 04:28] LABS: ABG HCO3 34.6 MMOL/L (20-26); ABG Oxygen Saturation 94.8 % (95-100); ABG PCO2 42.1 MM HG (35-48); ABG PH 7.533 (7.35-7.45); ABG TCO2 35.9 MMOL/L (23-27); Allen Test Positive; Pt O2 Delivery Device Other
[2020-03-27 04:42] LABS: Basophils % 0.2 % (0.0-0.8); Eosinophils % 0.1 % (0.00-10.9); Hematocrit 31.7 VOL% (35.7-47.0); Hemoglobin 9.9 GM/DL (12.0-16.0); Immature Granulocytes Absolute 0.26 #; Lymphocytes # 1.3 10*3/uL (1.4-4.0); Lymphocytes % 10.5 % (21.3-54.2); Mean Corpuscular HGB Conc 31.2 GM/DL (32-36); Mean Corpuscular Volume 81.7 FL (87-102); Monocytes % 10.9 % (1.7-12.7); Neutrophils % 76.3 % (38.7-73.9); Platelet Count 373 T/CUMM (130-400); Red Blood Count 3.88 MC/CUMM (3.8-5.5); Red Cell Distribution Width 18.9 % (9.3-17.3); White Blood Count 12.8 T/CUMM (4-12)
[2020-03-27 05:18] LABS: Calcium 8.5 MG/DL (8.5-10.1); Osmolality,Calculated 266.5 MOS/KG (273-304)
[2020-03-27] MEDS: LEVOTHYROXINE 100 MCG TABLET PO SCH (06:08)
[2020-03-27] MEDS: POTASSIUM CHLORIDE 20 MEQ TABLET PO PRN ×3 (06:08→13:03)
[2020-03-27] MEDS: CLINDAMYCIN 300 MG CAPSULE PO SCH ×3 (06:08→21:57)
[2020-03-27] MEDS: ONDANSETRON 4 MG/2 ML VIAL IV PRN ×3 (06:09→19:53)
[2020-03-27] MEDS: ACETYLCYSTEINE 20% 800 MG/4 ML VIAL RESP TX SCH ×3 (06:47→23:18)
[2020-03-27] MEDS: BUDESONIDE 0.5 MG/2 ML NEB RESP TX SCH ×2 (06:47→19:07)
[2020-03-27] MEDS ORDERED: MAGNESIUM SULF RIDER 2 GM in PREMIX 1 EACH IV PRN (07:26)
[2020-03-27] MEDS ORDERED: MAGNESIUM SULF RIDER 4 GM in PREMIX 1 EACH IV PRN (07:26)
[2020-03-27] MEDS: POLYETHYLENE GLYCOL POWDER 17 GM PACK PO SCH ×2 (08:49→21:55)
[2020-03-27] MEDS: APIXABAN 5 MG TABLET PO SCH ×2 (08:50→21:54)
[2020-03-27] MEDS: PANTOPRAZOLE 40 MG VIAL IV SCH ×2 (08:50→21:55)
[2020-03-27] MEDS: rOPINIRole 0.25 MG TABLET PO SCH ×3 (08:50→21:54)
[2020-03-27] MEDS: THEOPHYLLINE ER 300 MG TABLET PO SCH ×2 (08:51→21:54)
[2020-03-27] MEDS: AMIODARONE 200 MG TABLET PO SCH ×2 (08:51→21:54)
[2020-03-27] MEDS: ASPIRIN EC 81 MG TABLET PO SCH (08:53)
[2020-03-27] MEDS ORDERED: PROMETHAZINE INJ 12.5 MG in SODIUM CHLORIDE 0.9% 100 ML IV ONE (09:30)
[2020-03-27] MEDS: DILTIAZEM CD 120 MG CAPSULE PO SCH (11:56)
[2020-03-27] MEDS: ACETAMINOPHEN 325 MG TABLET PO PRN ×2 (13:04→19:53)
[2020-03-27] MEDS ORDERED: METOCLOPRAMIDE 10 MG/2 ML VIAL IV ONE (16:59)
[2020-03-27] MEDS: predniSONE 20 MG TABLET PO SCH (17:11)
[2020-03-27] MEDS ORDERED: diphenhydrAMINE 50 MG/1 ML VIAL IV ONE (21:28)
[2020-03-27] MEDS ORDERED: diphenhydrAMINE 50 MG/1 ML VIAL ONE (21:34)
[2020-03-27] MEDS: FOLIC ACID 0.4 MG TABLET PO SCH (21:54)
[2020-03-27] MEDS: ATORVASTATIN 40 MG TABLET PO SCH (21:54)
[2020-03-27] MEDS: CALCIUM (CARBONATE)/VITAMIN D 600 MG-400 UNIT TABLET PO SCH (21:54)
[2020-03-28] MEDS: PROMETHAZINE 25 MG/1 ML VIAL IM PRN (02:15)
[2020-03-28] MEDS: ALBUTEROL/IPRATROPIUM 3 ML NEB RESP TX SCH ×4 (03:46→15:32)
[2020-03-28 04:57] LABS: Basophils # 0.1 10*3/uL (0.0-0.2); Basophils % 0.5 % (0.0-0.8); Eosinophils % 0.1 % (0.00-10.9); Hematocrit 31.6 VOL% (35.7-47.0); Hemoglobin 9.7 GM/DL (12.0-16.0); Immature Granulocytes % 3.4 %; Immature Granulocytes Absolute 0.44 #; Lymphocytes # 0.8 10*3/uL (1.4-4.0); Mean Corpuscular HGB Conc 30.7 GM/DL (32-36); Mean Corpuscular Volume 82.3 FL (87-102); Mean Platelet Volume 10.6 FL (9.6-12.0); Monocytes % 6.5 % (1.7-12.7); Neutrophils % 83.5 % (38.7-73.9); Platelet Count 349 T/CUMM (130-400); Red Blood Count 3.84 MC/CUMM (3.8-5.5); Red Cell Distribution Width 19.1 % (9.3-17.3)
[2020-03-28 05:19] LABS: Hypochromasia 1+; Platelet Estimate Adequate
[2020-03-28 05:20] LABS: Calcium 8.5 MG/DL (8.5-10.1); Osmolality,Calculated 272.1 MOS/KG (273-304)
[2020-03-28] MEDS: ONDANSETRON 4 MG/2 ML VIAL IV PRN ×2 (05:35→11:47)
[2020-03-28] MEDS: CLINDAMYCIN 300 MG CAPSULE PO SCH ×2 (05:38→14:53)
[2020-03-28] MEDS: LEVOTHYROXINE 100 MCG TABLET PO SCH (05:54)
[2020-03-28] MEDS ORDERED: POTASSIUM CHLORIDE RIDER 10 MEQ in PREMIX 1 EACH IV PRN (06:55)
[2020-03-28] MEDS ORDERED: POTASSIUM CHLORIDE RIDER 20 MEQ in PREMIX 1 EACH IV PRN (06:55)
[2020-03-28] MEDS ORDERED: LINACLOTIDE 145 MCG CAPSULE PO SCH (07:30)
[2020-03-28] MEDS: ACETYLCYSTEINE 20% 800 MG/4 ML VIAL RESP TX SCH ×2 (07:48→15:32)
[2020-03-28] MEDS: BUDESONIDE 0.5 MG/2 ML NEB RESP TX SCH (07:48)
[2020-03-28] MEDS ORDERED: POLYETHYLENE GLYCOL POWDER 17 GM PACK PO PRN (08:37)
[2020-03-28] MEDS ORDERED: FUROSEMIDE 40 MG TABLET PO SCH (09:00)
[2020-03-28] MEDS: APIXABAN 5 MG TABLET PO SCH (09:11)
[2020-03-28] MEDS: DILTIAZEM CD 120 MG CAPSULE PO SCH (09:12)
[2020-03-28] MEDS: predniSONE 20 MG TABLET PO SCH (09:12)
[2020-03-28] MEDS: ASPIRIN EC 81 MG TABLET PO SCH (09:12)
[2020-03-28] MEDS: PANTOPRAZOLE 40 MG VIAL IV SCH (09:13)
[2020-03-28] MEDS: AMIODARONE 200 MG TABLET PO SCH (09:13)
[2020-03-28 09:14] VITALS: BP 85/59
[2020-03-28] MEDS ORDERED: METOCLOPRAMIDE 10 MG/2 ML VIAL IV SCH (12:00)
[2020-03-29] MEDS ORDERED: predniSONE 20 MG TABLET PO SCH (09:00)
== END 2020-03-28 17:25 | disposition swing bed (61) | DRG 391 ==
LOC: EDUNIT# → EDBD → N.ED 14:43 → SUATTDRO 18:51 → N.EDINP 18:51 → N.TELES 20:56 → N.ICU 03-23 04:58 → N.TELES 03-26 14:38 → N.ICU 03-26 15:21
PROVIDERS: ADMIT Internal Medicine; ATTEND Internal Medicine

== ENCOUNTER 2020-04-20 09:40 | Inpatient (IN) ==
[2020-04-20] MEDS ORDERED: INFLUENZA VIRUS VACCINE 0.5 ML SYRINGE IM ONE (12:32)
[2020-04-20] MEDS ORDERED: GLUCAGON 1 MG VIAL IM PRN ×2 (12:36→14:04)
[2020-04-20] MEDS ORDERED: DEXTROSE 50% 25 GM/50 ML VIAL IV PRN ×2 (12:36→14:04)
[2020-04-20] MEDS ORDERED: SODIUM CHLORIDE 0.9% 1,000 ML IV PRN ×2 (13:20→14:07)
[2020-04-20 13:42] LABS: Basophils % 0.2 % (0.0-0.8); Eosinophils # 0.1 10*3/uL (0.0-0.87); Eosinophils % 2.6 % (0.00-10.9); Hematocrit 21.8 VOL% (35.7-47.0); Immature Granulocytes % 0.7 %; Immature Granulocytes Absolute 0.03 #; Lymphocytes # 0.8 10*3/uL (1.4-4.0); Lymphocytes % 18.9 % (21.3-54.2); Mean Corpuscular HGB Conc 29.4 GM/DL (32-36); Mean Corpuscular Volume 86.9 FL (87-102); Mean Platelet Volume 9.8 FL (9.6-12.0); Monocytes % 4.3 % (1.7-12.7); Neutrophils % 73.3 % (38.7-73.9); Platelet Count 168 T/CUMM (130-400); Red Blood Count 2.51 MC/CUMM (3.8-5.5); Red Cell Distribution Width 22.5 % (9.3-17.3); White Blood Count 4.2 T/CUMM (4-12)
[2020-04-20 13:48] LABS: Hemoglobin 6.4 GM/DL (12.0-16.0)
[2020-04-20 14:08] LABS: Alanine Aminotransferase 19 U/L (13-56); Alkaline Phosphatase 107 U/L (45-117); Aspartate Amino Transferase 20 U/L (0-37); Bilirubin,Total < 0.39 MG/DL (0.2-1.0); Blood Urea Nitrogen 10 MG/DL (7-18); Calcium 7.6 MG/DL (8.5-10.1); Estimated Glom Filtration Rate 94 ML/MIN; Glucose 112 MG/DL (74-106); Osmolality,Calculated 274.7 MOS/KG (273-304); Total Protein 5.1 G/DL (6.4-8.3)
[2020-04-20 14:09] LABS: Anisocytosis 1+; Hypochromasia 1+; Platelet Estimate Adequate; Schistocytes Few
[2020-04-20] MEDS: ALBUTEROL/IPRATROPIUM 3 ML NEB RESP TX PRN (17:52)
[2020-04-20] MEDS: ONDANSETRON 4 MG/2 ML VIAL IV PRN (18:04)
[2020-04-20] MEDS ORDERED: FUROSEMIDE 20 MG/2 ML VIAL IV ONE ×2 (20:00→22:54)
[2020-04-21 00:02] LABS: Hematocrit 29.5 VOL% (35.7-47.0)
[2020-04-21 00:07] LABS: Hemoglobin 9.4 GM/DL (12.0-16.0)
[2020-04-21] MEDS: ONDANSETRON 4 MG/2 ML VIAL IV PRN ×4 (03:02→21:13)
[2020-04-21 06:18] LABS: Basophils % 0.6 % (0.0-0.8); Eosinophils # 0.1 10*3/uL (0.0-0.87); Eosinophils % 3.5 % (0.00-10.9); Hematocrit 27.7 VOL% (35.7-47.0); Hemoglobin 8.8 GM/DL (12.0-16.0); Immature Granulocytes % 0.6 %; Immature Granulocytes Absolute 0.02 #; Lymphocytes # 0.8 10*3/uL (1.4-4.0); Lymphocytes % 21.9 % (21.3-54.2); Mean Corpuscular HGB Conc 31.8 GM/DL (32-36); Mean Corpuscular Volume 81.5 FL (87-102); Mean Platelet Volume 9.8 FL (9.6-12.0); Monocytes % 6.1 % (1.7-12.7); Neutrophils % 67.3 % (38.7-73.9); Platelet Count 134 T/CUMM (130-400); Red Cell Distribution Width 19.5 % (9.3-17.3); White Blood Count 3.4 T/CUMM (4-12)
[2020-04-21 06:37] LABS: Calcium 7.6 MG/DL (8.5-10.1); Osmolality,Calculated 269.8 MOS/KG (273-304)
[2020-04-21] MEDS: AMIODARONE 200 MG TABLET PO SCH (10:29)
[2020-04-21] MEDS: DILTIAZEM CD 120 MG CAPSULE PO SCH (10:29)
[2020-04-21] MEDS ORDERED: POTASSIUM CHLORIDE INJ 50 MEQ, MAGNESIUM SULF INJ 4 GM in SODIUM CHLORIDE 0.9% 500 ML IV ONE (11:00)
[2020-04-21] MEDS ORDERED: MAGNESIUM SULF RIDER 4 GM in PREMIX 1 EACH IV PRN (16:07)
[2020-04-21] MEDS: ZINC OXIDE PASTE 113 GM TUBE TOP SCH ×2 (16:43→21:15)
[2020-04-21] MEDS: ALBUTEROL/IPRATROPIUM 3 ML NEB RESP TX PRN (19:33)
[2020-04-21] MEDS ORDERED: MAGNESIUM CITRATE 300 ML BOTTLE PO ONE (21:00)
[2020-04-21] MEDS: POTASSIUM CHLORIDE 20 MEQ/15 ML UDCUP PO SCH (21:16)
[2020-04-22 05:49] LABS: Basophils % 0.4 % (0.0-0.8); Eosinophils # 0.1 10*3/uL (0.0-0.87); Eosinophils % 4.4 % (0.00-10.9); Hematocrit 27.9 VOL% (35.7-47.0); Hemoglobin 8.9 GM/DL (12.0-16.0); Immature Granulocytes % 0.7 %; Immature Granulocytes Absolute 0.02 #; Lymphocytes # 0.9 10*3/uL (1.4-4.0); Lymphocytes % 32.4 % (21.3-54.2); Mean Corpuscular HGB Conc 31.9 GM/DL (32-36); Mean Platelet Volume 9.5 FL (9.6-12.0); Monocytes % 10.2 % (1.7-12.7); Neutrophils % 51.9 % (38.7-73.9); Platelet Count 129 T/CUMM (130-400); Red Blood Count 3.36 MC/CUMM (3.8-5.5); Red Cell Distribution Width 19.9 % (9.3-17.3); White Blood Count 2.8 T/CUMM (4-12)
[2020-04-22 06:06] LABS: Calcium 7.5 MG/DL (8.5-10.1); Osmolality,Calculated 275.4 MOS/KG (273-304)
[2020-04-22 06:11] LABS: Hypochromasia 1+; Microcytosis 1+
[2020-04-22 06:12] LABS: Platelet Estimate Adequate
[2020-04-22] MEDS: ONDANSETRON 4 MG/2 ML VIAL IV PRN (08:19)
[2020-04-22] MEDS ORDERED: POTASSIUM CHLORIDE RIDER 10 MEQ in PREMIX 1 EACH IV SCH (09:00)
[2020-04-22] MEDS ORDERED: POTASSIUM CHLORIDE INJ 50 MEQ in SODIUM CHLORIDE 0.9% 500 ML IV ONE (10:00)
[2020-04-22] MEDS: PROMETHAZINE 25 MG/1 ML VIAL IM PRN (10:07)
[2020-04-22] MEDS: BISACODYL 5 MG TABLET PO SCH ×2 (11:17→16:51)
[2020-04-22] MEDS: AMIODARONE 200 MG TABLET PO SCH (11:18)
[2020-04-22] MEDS: DILTIAZEM CD 120 MG CAPSULE PO SCH (11:18)
[2020-04-22] MEDS: ZINC OXIDE PASTE 113 GM TUBE TOP SCH ×2 (11:18→21:37)
[2020-04-22] MEDS: POTASSIUM CHLORIDE 20 MEQ/15 ML UDCUP PO SCH ×3 (11:18→21:33)
[2020-04-22 11:19] LABS: Bilirubin,Urine Negative (Negative); Blood, Urine Large mg/dL (Negative); Glucose,Urine (UA) Negative (Negative); Ketones,Urine Negative (Negative); Mucus,Urine Many /LPF (Occasional); Nitrite,Urine Positive (Negative); Protein,Urine 100 MG/DL; RBC,Urine 47 /HPF (0-4); Urine Appearance CLOUDY (Clear); Urine Color Yellow (Yellow); Urine Specific Gravity 1.013 (1.001-1.035); Urine Urobilinogen < 2.0 EU/DL (0.2-1.0); WBC,Urine 3786 /HPF (0-6)
[2020-04-22] MEDS ORDERED: POLYETHYLENE GLYCOL 3350/ELECTROLYTES 4,000 ML BOTTLE PO ONE ×2 (18:00→19:30)
[2020-04-23] MEDS: BISACODYL 5 MG TABLET PO SCH (00:07)
[2020-04-23] MEDS: ONDANSETRON 4 MG/2 ML VIAL IV PRN ×3 (00:16→23:32)
[2020-04-23 05:46] LABS: Basophils % 0.9 % (0.0-0.8); Eosinophils # 0.1 10*3/uL (0.0-0.87); Eosinophils % 2.9 % (0.00-10.9); Hemoglobin 9.7 GM/DL (12.0-16.0); Immature Granulocytes % 1.7 %; Immature Granulocytes Absolute 0.06 #; Lymphocytes # 1.1 10*3/uL (1.4-4.0); Lymphocytes % 30.9 % (21.3-54.2); Mean Corpuscular HGB Conc 31.3 GM/DL (32-36); Mean Corpuscular Volume 85.2 FL (87-102); Mean Platelet Volume 9.4 FL (9.6-12.0); Monocytes % 17.2 % (1.7-12.7); Neutrophils % 46.4 % (38.7-73.9); Platelet Count 119 T/CUMM (130-400); Red Blood Count 3.64 MC/CUMM (3.8-5.5); Red Cell Distribution Width 20.3 % (9.3-17.3); White Blood Count 3.5 T/CUMM (4-12)
[2020-04-23 06:00] LABS: Calcium 7.8 MG/DL (8.5-10.1); Osmolality,Calculated 275.4 MOS/KG (273-304)
[2020-04-23 06:10] LABS: Band Neutrophils 1 % (0-10); Eosinophils 3 % (0-10); Hypochromasia 1+; Lymphocytes 23 % (20-55); Nucleated Red Blood Cells 1 (0-5); Platelet Estimate Decreased; Segmented Neutrophils 59 % (50-85); Total Cells Counted 100
[2020-04-23 06:11] LABS: Microcytosis 1+
[2020-04-23] MEDS ORDERED: LACTATED RINGERS 1,000 ML IV SCH (08:30)
[2020-04-23] MEDS ORDERED: ETOMIDATE 20 MG/10 ML VIAL IV ONE (09:00)
[2020-04-23] MEDS ORDERED: ONDANSETRON 4 MG/2 ML VIAL ONE (09:00)
[2020-04-23] MEDS ORDERED: LIDOCAINE 2% 5 ML VIAL ONE (09:00)
[2020-04-23] MEDS ORDERED: PHENYLEPHRINE 1 MG/10 ML SYRINGE IV ONE (09:00)
[2020-04-23] MEDS ORDERED: propofoL 200 MG/20 ML VIAL IV ONE (09:00)
[2020-04-23] MEDS: ALBUTEROL/IPRATROPIUM 3 ML NEB RESP TX PRN (10:45)
[2020-04-23] MEDS: ZINC OXIDE PASTE 113 GM TUBE TOP SCH ×2 (12:34→21:19)
[2020-04-23] MEDS: AMIODARONE 200 MG TABLET PO SCH (12:34)
[2020-04-23] MEDS: DILTIAZEM CD 120 MG CAPSULE PO SCH (12:34)
[2020-04-23] MEDS: POTASSIUM CHLORIDE 20 MEQ/15 ML UDCUP PO SCH ×4 (12:34→21:19)
[2020-04-24] MEDS: PROMETHAZINE 25 MG/1 ML VIAL IM PRN ×3 (01:00→12:10)
[2020-04-24 04:22] LABS: Basophils % 0.5 % (0.0-0.8); Eosinophils # 0.1 10*3/uL (0.0-0.87); Eosinophils % 1.7 % (0.00-10.9); Hematocrit 30.2 VOL% (35.7-47.0); Hemoglobin 9.3 GM/DL (12.0-16.0); Immature Granulocytes % 5.8 %; Immature Granulocytes Absolute 0.38 #; Lymphocytes # 1.7 10*3/uL (1.4-4.0); Lymphocytes % 25.7 % (21.3-54.2); Mean Corpuscular HGB Conc 30.8 GM/DL (32-36); Mean Corpuscular Volume 84.1 FL (87-102); Mean Platelet Volume 9.6 FL (9.6-12.0); Monocytes % 16.4 % (1.7-12.7); Neutrophils % 49.9 % (38.7-73.9); Platelet Count 143 T/CUMM (130-400); Red Blood Count 3.59 MC/CUMM (3.8-5.5); Red Cell Distribution Width 20.3 % (9.3-17.3); White Blood Count 6.5 T/CUMM (4-12)
[2020-04-24 04:42] LABS: Band Neutrophils 5 % (0-10); Eosinophils 1 % (0-10); Hypochromasia 1+; Lymphocytes 28 % (20-55); Microcytosis 1+; Platelet Estimate Adequate; Segmented Neutrophils 53 % (50-85); Total Cells Counted 100
[2020-04-24] MEDS ORDERED: PANTOPRAZOLE 40 MG TABLET PO SCH (09:00)
[2020-04-24] MEDS: DILTIAZEM CD 120 MG CAPSULE PO SCH (09:03)
[2020-04-24] MEDS: AMIODARONE 200 MG TABLET PO SCH (09:03)
[2020-04-24] MEDS: ONDANSETRON 4 MG/2 ML VIAL IV PRN (09:17)
[2020-04-24] MEDS: ZINC OXIDE PASTE 113 GM TUBE TOP SCH ×2 (09:57→21:10)
[2020-04-24] MEDS ORDERED: MAGNESIUM SULF RIDER 4 GM in PREMIX 1 EACH IV ONE (10:00)
[2020-04-24] MEDS ORDERED: MAGNESIUM CHLORIDE 64 MG TABLET PO ONE (11:00)
[2020-04-24] MEDS: ACETAMINOPHEN 325 MG TABLET PO PRN (13:24)
[2020-04-24] MEDS: PANTOPRAZOLE 40 MG TABLET PO SCH (17:46)
[2020-04-24] MEDS: MAGNESIUM CHLORIDE 64 MG TABLET PO SCH (21:08)
[2020-04-25 05:42] LABS: Basophils # 0.1 10*3/uL (0.0-0.2); Eosinophils # 0.1 10*3/uL (0.0-0.87); Eosinophils % 1.2 % (0.00-10.9); Hematocrit 29.9 VOL% (35.7-47.0); Hemoglobin 9.3 GM/DL (12.0-16.0); Immature Granulocytes Absolute 0.48 #; Lymphocytes # 1.2 10*3/uL (1.4-4.0); Mean Corpuscular HGB Conc 31.1 GM/DL (32-36); Mean Corpuscular Volume 83.8 FL (87-102); Mean Platelet Volume 10.1 FL (9.6-12.0); Monocytes % 14.4 % (1.7-12.7); NRBC # 0.02 10*3/uL; Neutrophils % 58.4 % (38.7-73.9); Platelet Count 162 T/CUMM (130-400); Red Blood Count 3.57 MC/CUMM (3.8-5.5); Red Cell Distribution Width 20.2 % (9.3-17.3); White Blood Count 6.9 T/CUMM (4-12)
[2020-04-25] MEDS: PANTOPRAZOLE 40 MG TABLET PO SCH ×2 (05:57→17:35)
[2020-04-25 06:09] LABS: Calcium 7.9 MG/DL (8.5-10.1); Osmolality,Calculated 271.7 MOS/KG (273-304)
[2020-04-25 07:29] LABS: Band Neutrophils 2 % (0-10); Eosinophils 2 % (0-10); Hypochromasia 1+; Lymphocytes 18 % (20-55); Metamyelocytes 2 %; Microcytosis 1+; Segmented Neutrophils 62 % (50-85); Total Cells Counted 100
[2020-04-25 07:30] LABS: Platelet Estimate Adequate
[2020-04-25] MEDS: DILTIAZEM CD 120 MG CAPSULE PO SCH (08:49)
[2020-04-25] MEDS: MAGNESIUM CHLORIDE 64 MG TABLET PO SCH ×2 (08:49→20:07)
[2020-04-25] MEDS: AMIODARONE 200 MG TABLET PO SCH (08:49)
[2020-04-25] MEDS: ZINC OXIDE PASTE 113 GM TUBE TOP SCH ×2 (08:49→20:08)
[2020-04-25] MEDS: POTASSIUM CHLORIDE 20 MEQ TABLET PO SCH ×3 (09:41→17:28)
[2020-04-25] MEDS: FUROSEMIDE 80 MG TABLET PO SCH ×2 (10:39→17:35)
[2020-04-26] MEDS: PROMETHAZINE 25 MG/1 ML VIAL IM PRN ×2 (03:53→10:56)
[2020-04-26] MEDS: PANTOPRAZOLE 40 MG TABLET PO SCH ×2 (05:51→17:31)
[2020-04-26] MEDS: FUROSEMIDE 80 MG TABLET PO SCH ×2 (08:30→15:57)
[2020-04-26] MEDS: MAGNESIUM CHLORIDE 64 MG TABLET PO SCH ×2 (08:30→21:21)
[2020-04-26] MEDS: AMIODARONE 200 MG TABLET PO SCH (08:31)
[2020-04-26] MEDS: DILTIAZEM CD 120 MG CAPSULE PO SCH (08:31)
[2020-04-26] MEDS: ZINC OXIDE PASTE 113 GM TUBE TOP SCH ×2 (08:32→21:21)
[2020-04-26 08:52] LABS: Basophils % 0.3 % (0.0-0.8); Eosinophils # 0.1 10*3/uL (0.0-0.87); Eosinophils % 1.1 % (0.00-10.9); Hematocrit 33.1 VOL% (35.7-47.0); Hemoglobin 10.3 GM/DL (12.0-16.0); Immature Granulocytes % 9.9 %; Immature Granulocytes Absolute 0.94 #; Lymphocytes # 1.8 10*3/uL (1.4-4.0); Lymphocytes % 18.8 % (21.3-54.2); Mean Corpuscular HGB Conc 31.1 GM/DL (32-36); Mean Corpuscular Volume 83.6 FL (87-102); Neutrophils % 57.9 % (38.7-73.9); Platelet Count 291 T/CUMM (130-400); Red Blood Count 3.96 MC/CUMM (3.8-5.5); White Blood Count 9.5 T/CUMM (4-12)
[2020-04-26 09:11] LABS: Calcium 8.2 MG/DL (8.5-10.1); Osmolality,Calculated 264.4 MOS/KG (273-304)
[2020-04-26 09:29] LABS: Band Neutrophils 17 % (0-10); Eosinophils 3 % (0-10); Lymphocytes 18 % (20-55); Metamyelocytes 4 %; Myelocytes 2 %; Nucleated Red Blood Cells 9 (0-5); Platelet Estimate Normal; Segmented Neutrophils 44 % (50-85); Total Cells Counted 100
[2020-04-26 09:30] LABS: Anisocytosis 2+; Atypical Lymphocytes Few; Giant Platelets Few
[2020-04-26] MEDS: ONDANSETRON 4 MG/2 ML VIAL IV PRN (10:52)
[2020-04-26] MEDS: diphenhydrAMINE CAP 25 MG CAPSULE PO PRN ×2 (17:32→22:07)
[2020-04-26] MEDS: ACETAMINOPHEN 325 MG TABLET PO PRN (22:07)
[2020-04-27] MEDS: PROMETHAZINE 25 MG/1 ML VIAL IM PRN (03:22)
[2020-04-27 04:26] LABS: Basophils % 0.3 % (0.0-0.8); Eosinophils # 0.1 10*3/uL (0.0-0.87); Eosinophils % 1.2 % (0.00-10.9); Immature Granulocytes % 8.9 %; Immature Granulocytes Absolute 1.07 #; Lymphocytes # 2.7 10*3/uL (1.4-4.0); Lymphocytes % 22.9 % (21.3-54.2); Mean Corpuscular HGB Conc 31.3 GM/DL (32-36); Mean Corpuscular Volume 83.1 FL (87-102); Mean Platelet Volume 9.7 FL (9.6-12.0); Monocytes % 15.4 % (1.7-12.7); NRBC # 0.16 10*3/uL; Neutrophils % 51.3 % (38.7-73.9); Platelet Count 302 T/CUMM (130-400); Red Blood Count 3.85 MC/CUMM (3.8-5.5)
[2020-04-27 04:40] LABS: Calcium 7.9 MG/DL (8.5-10.1); Osmolality,Calculated 264.2 MOS/KG (273-304)
[2020-04-27] MEDS: PANTOPRAZOLE 40 MG TABLET PO SCH ×3 (05:48→18:20)
[2020-04-27 08:00] LABS: Band Neutrophils 18 % (0-10); Eosinophils 3 % (0-10); Lymphocytes 15 % (20-55); Metamyelocytes 2 %; Myelocytes 2 %; Platelet Estimate Normal; Segmented Neutrophils 45 % (50-85); Smudge Cells 1+; Total Cells Counted 100
[2020-04-27 08:01] LABS: Anisocytosis 3+; Atypical Lymphocytes Few; Macrocytosis 2+; Polychromasia Slight
[2020-04-27 08:02] LABS: Giant Platelets Few; Target Cells Few
[2020-04-27] MEDS: AMIODARONE 200 MG TABLET PO SCH (08:15)
[2020-04-27] MEDS: DILTIAZEM CD 120 MG CAPSULE PO SCH (08:15)
[2020-04-27] MEDS: MAGNESIUM CHLORIDE 64 MG TABLET PO SCH ×2 (08:15→21:33)
[2020-04-27] MEDS: FUROSEMIDE 80 MG TABLET PO SCH ×2 (08:16→16:12)
[2020-04-27] MEDS: diphenhydrAMINE CAP 25 MG CAPSULE PO PRN ×3 (08:16→21:33)
[2020-04-27] MEDS: ZINC OXIDE PASTE 113 GM TUBE TOP SCH ×2 (08:17→21:33)
[2020-04-27] MEDS: ACETAMINOPHEN 325 MG TABLET PO PRN (12:52)
[2020-04-27] MEDS: rOPINIRole 0.25 MG TABLET PO SCH (21:33)
[2020-04-28 05:42] LABS: Basophils # 0.1 10*3/uL (0.0-0.2); Eosinophils # 0.1 10*3/uL (0.0-0.87); Hematocrit 29.9 VOL% (35.7-47.0); Hemoglobin 9.4 GM/DL (12.0-16.0); Immature Granulocytes % 8.4 %; Immature Granulocytes Absolute 0.88 #; Lymphocytes # 2.1 10*3/uL (1.4-4.0); Lymphocytes % 19.9 % (21.3-54.2); Mean Corpuscular HGB Conc 31.4 GM/DL (32-36); Mean Corpuscular Volume 82.4 FL (87-102); Mean Platelet Volume 9.6 FL (9.6-12.0); NRBC # 0.05 10*3/uL; Neutrophils % 55.7 % (38.7-73.9); Platelet Count 377 T/CUMM (130-400); Red Blood Count 3.63 MC/CUMM (3.8-5.5); Red Cell Distribution Width 21.2 % (9.3-17.3); White Blood Count 10.5 T/CUMM (4-12)
[2020-04-28] MEDS: PANTOPRAZOLE 40 MG TABLET PO SCH ×2 (05:49→17:47)
[2020-04-28 06:06] LABS: Calcium 7.6 MG/DL (8.5-10.1); Osmolality,Calculated 268.1 MOS/KG (273-304)
[2020-04-28 06:15] LABS: Hypochromasia 1+; Lymphocytes 17 % (20-55); Microcytosis 1+; Platelet Estimate Adequate; Segmented Neutrophils 74 % (50-85); Total Cells Counted 100
[2020-04-28 06:16] LABS: Atypical Lymphocytes Few
[2020-04-28] MEDS: DILTIAZEM CD 120 MG CAPSULE PO SCH (09:01)
[2020-04-28] MEDS: AMIODARONE 200 MG TABLET PO SCH (09:01)
[2020-04-28] MEDS: FUROSEMIDE 80 MG TABLET PO SCH ×2 (09:01→16:09)
[2020-04-28] MEDS: MAGNESIUM CHLORIDE 64 MG TABLET PO SCH ×2 (09:01→20:35)
[2020-04-28] MEDS: ZINC OXIDE PASTE 113 GM TUBE TOP SCH ×2 (09:02→20:35)
[2020-04-28] MEDS ORDERED: POTASSIUM CHLORIDE 20 MEQ TABLET PO ONE (15:00)
[2020-04-28] MEDS: CYPROHEPTADINE 4 MG TABLET PO SCH ×2 (16:09→20:35)
[2020-04-28] MEDS: rOPINIRole 0.25 MG TABLET PO SCH (20:35)
[2020-04-29] MEDS: PANTOPRAZOLE 40 MG TABLET PO SCH (06:52)
[2020-04-29] MEDS: FUROSEMIDE 80 MG TABLET PO SCH (08:19)
[2020-04-29] MEDS: CYPROHEPTADINE 4 MG TABLET PO SCH (08:19)
[2020-04-29] MEDS: MAGNESIUM CHLORIDE 64 MG TABLET PO SCH (08:19)
[2020-04-29] MEDS: DILTIAZEM CD 120 MG CAPSULE PO SCH (08:19)
[2020-04-29] MEDS: ZINC OXIDE PASTE 113 GM TUBE TOP SCH (08:20)
[2020-04-29] MEDS: AMIODARONE 200 MG TABLET PO SCH (08:20)
[2020-04-29] MEDS ORDERED: POTASSIUM CHLORIDE 20 MEQ TABLET PO SCH (09:00)
[2020-04-29] MEDS ORDERED: CHOLECALCIFEROL 1,000 UNIT TABLET PO SCH (09:00)
[2020-04-29 11:41] VITALS: BP 119/52
[2020-04-29] MEDS ORDERED: FUROSEMIDE 40 MG TABLET PO SCH (16:00)
== END 2020-04-29 13:15 | disposition swing bed (61) | DRG 378 ==
LOC: N.5E 12:07 → SUATTDRO 12:07
PROVIDERS: ADMIT Internal Medicine; ATTEND Hospitalist
PROC: COLONHP (2020-04-23 07:35)

== ENCOUNTER 2020-06-02 15:46 | Inpatient (IN) ==
[2020-06-02 17:07] LABS: Basophils # 0.1 10*3/uL (0.0-0.2); Basophils % 0.4 % (0.0-0.8); Hematocrit 35.7 VOL% (35.7-47.0); Hemoglobin 11.7 GM/DL (12.0-16.0); Immature Granulocytes % 1.7 %; Immature Granulocytes Absolute 0.39 #; Lymphocytes # 1.8 10*3/uL (1.4-4.0); Lymphocytes % 7.9 % (21.3-54.2); Mean Corpuscular HGB Conc 32.8 GM/DL (32-36); Mean Platelet Volume 10.5 FL (9.6-12.0); Monocytes % 4.1 % (1.7-12.7); Neutrophils % 85.9 % (38.7-73.9); Platelet Count 352 T/CUMM (130-400); Red Blood Count 4.52 MC/CUMM (3.8-5.5); Red Cell Distribution Width 23.5 % (9.3-17.3); White Blood Count 22.7 T/CUMM (4-12)
[2020-06-02 17:26] LABS: Bilirubin,Total 0.5 MG/DL (0.2-1.0); Osmolality,Calculated 260.1 MOS/KG (273-304); Total Protein 6.1 G/DL (6.4-8.3)
[2020-06-02 17:34] LABS: Bacteria,Urine Many /HPF (Few); Bilirubin,Urine Negative (Negative); Blood, Urine Negative (Negative); Glucose,Urine (UA) Negative (Negative); Hyaline Casts,Urine 202 /LPF (0-3); Ketones,Urine Negative (Negative); Mucus,Urine Moderate /LPF (Occasional); Nitrite,Urine Negative (Negative); Protein,Urine 30 MG/DL; RBC,Urine 55 /HPF (0-4); Squamous Epithelial Cell,Urine Moderate /HPF (0-10); Urine Appearance CLOUDY (Clear); Urine Color Yellow (Yellow); Urine Specific Gravity 1.015 (1.001-1.035); Urine Urobilinogen < 2.0 EU/DL (0.2-1.0); WBC,Urine 498 /HPF (0-6)
[2020-06-02] MEDS ORDERED: LEVOFLOXACIN INJ 750 MG in PREMIX 1 EACH IV STA (17:44)
[2020-06-02] MEDS ORDERED: SODIUM CHLOR 0.9% KCL 20 MEQ 20 MEQ/1,000 ML BAG IV ONE (17:46)
[2020-06-02] MEDS ORDERED: SODIUM CHLOR 0.9% KCL 20 MEQ 20 MEQ/1,000 ML BAG IV SCH (18:00)
[2020-06-02] MEDS ORDERED: POTASSIUM CHLORIDE 20 MEQ TABLET PO STA (18:33)
[2020-06-02] MEDS ORDERED: LACTATED RINGERS 1,000 ML IV ONE (18:54)
[2020-06-02 19:31] LABS: Lymphocytes 2 % (20-55); Myelocytes 1 %; Segmented Neutrophils 96 % (50-85); Total Cells Counted 100
[2020-06-02] MEDS ORDERED: DEXTROSE 50% 25 GM/50 ML VIAL IV PRN (23:05)
[2020-06-02] MEDS ORDERED: GLUCAGON 1 MG VIAL IM PRN (23:05)
[2020-06-02] MEDS ORDERED: DOCUSATE SODIUM 100 MG CAPSULE PO PRN (23:13)
[2020-06-02] MEDS ORDERED: traZODone 50 MG TABLET PO PRN (23:21)
[2020-06-02] MEDS ORDERED: ALBUTEROL 2.5 MG/3 ML NEB RESP TX PRN (23:21)
[2020-06-02] MEDS ORDERED: DEXTROSE 50% 25 GM/50 ML SYRINGE IV PRN (23:23)
[2020-06-02] MEDS ORDERED: MAGNESIUM SULF RIDER 4 GM in PREMIX 1 EACH IV PRN (23:27)
[2020-06-02] MEDS ORDERED: MAGNESIUM SULF RIDER 2 GM in PREMIX 1 EACH IV PRN (23:27)
[2020-06-02] MEDS ORDERED: SODIUM CHLORIDE 0.9% 1,000 ML IV SCH (23:30)
[2020-06-02] MEDS ORDERED: PRIMIDONE 250 MG TABLET PO SCH (23:30)
[2020-06-02] MEDS ORDERED: ENOXAPARIN 40 MG/0.4 ML SYRINGE SUBCUT SCH (23:30)
[2020-06-02] MEDS ORDERED: GENTAMICIN INJ 120 MG in PREMIX 1 EACH IV SCH (23:45)
[2020-06-03] MEDS ORDERED: metroNIDAZOLE INJ 500 MG in PREMIX 1 EACH IV SCH
[2020-06-03] MEDS ORDERED: AMIKACIN IV SCH (01:30)
[2020-06-03] MEDS ORDERED: SODIUM CHLORIDE 0.9% IV SCH (01:30)
[2020-06-03] MEDS: AMIODARONE 200 MG TABLET PO SCH ×3 (01:50→21:27)
[2020-06-03] MEDS: rOPINIRole 1 MG TABLET PO SCH ×2 (01:50→21:28)
[2020-06-03] MEDS: PANTOPRAZOLE 40 MG TABLET PO SCH ×2 (01:50→21:29)
[2020-06-03] MEDS: ATORVASTATIN 40 MG TABLET PO SCH ×2 (01:50→21:28)
[2020-06-03] MEDS: DONEPEZIL 10 MG TABLET PO SCH ×2 (01:50→21:28)
[2020-06-03] MEDS: VENLAFAXINE 75 MG TABLET PO SCH ×3 (01:50→21:27)
[2020-06-03] MEDS: MAGNESIUM CHLORIDE 64 MG TABLET PO SCH ×3 (01:50→21:27)
[2020-06-03] MEDS: PRIMIDONE 50 MG TABLET PO SCH ×3 (01:51→21:25)
[2020-06-03] MEDS: ONDANSETRON 4 MG/2 ML VIAL IV PRN (03:26)
[2020-06-03] MEDS: ACETAMINOPHEN 325 MG TABLET PO PRN ×2 (04:10→16:33)
[2020-06-03 06:16] LABS: Basophils # 0.1 10*3/uL (0.0-0.2); Basophils % 0.3 % (0.0-0.8); Hemoglobin 10.9 GM/DL (12.0-16.0); Immature Granulocytes % 1.7 %; Lymphocytes # 1.8 10*3/uL (1.4-4.0); Lymphocytes % 7.5 % (21.3-54.2); Mean Corpuscular Volume 79.7 FL (87-102); Mean Platelet Volume 10.8 FL (9.6-12.0); Monocytes % 5.4 % (1.7-12.7); Neutrophils % 85.1 % (38.7-73.9); Platelet Count 346 T/CUMM (130-400); Red Blood Count 4.14 MC/CUMM (3.8-5.5); Red Cell Distribution Width 23.5 % (9.3-17.3); White Blood Count 24.1 T/CUMM (4-12)
[2020-06-03 06:36] LABS: Albumin 1.9 G/DL (3.4-5.0); Bilirubin,Total 0.8 MG/DL (0.2-1.0); Calcium 8.1 MG/DL (8.5-10.1); Osmolality,Calculated 268.4 MOS/KG (273-304); Total Protein 5.6 G/DL (6.4-8.3)
[2020-06-03 06:42] LABS: Band Neutrophils 7 % (0-10); Lymphocytes 4 % (20-55); Platelet Estimate Normal; Segmented Neutrophils 86 % (50-85)
[2020-06-03 06:43] LABS: Hypochromasia Slight; Microcytosis Slight; Total Cells Counted 100
[2020-06-03] MEDS: LEVOTHYROXINE 137 MCG TABLET PO SCH (06:45)
[2020-06-03] MEDS ORDERED: APIXABAN 5 MG TABLET PO SCH (09:00)
[2020-06-03] MEDS ORDERED: LOSARTAN 50 MG TABLET PO SCH (09:00)
[2020-06-03] MEDS: METOCLOPRAMIDE 10 MG TABLET PO SCH ×4 (09:24→21:27)
[2020-06-03] MEDS: POTASSIUM CHLORIDE 20 MEQ TABLET PO SCH (09:25)
[2020-06-03] MEDS: POTASSIUM CHLORIDE 20 MEQ TABLET PO PRN ×4 (09:25→18:13)
[2020-06-03] MEDS: predniSONE 5 MG TABLET PO SCH (09:25)
[2020-06-03] MEDS: NYSTATIN POWDER 15 GM BOTTLE TOP SCH ×3 (09:26→21:40)
[2020-06-03] MEDS: MUPIROCIN 2% OINT 22 GM TUBE TOP SCH ×3 (09:26→21:40)
[2020-06-03] MEDS: THEOPHYLLINE ER 300 MG TABLET PO SCH ×2 (09:29→16:32)
[2020-06-03] MEDS: DILTIAZEM CD 120 MG CAPSULE PO SCH (09:29)
[2020-06-03] MEDS: ENOXAPARIN 40 MG/0.4 ML SYRINGE SUBCUT SCH (09:30)
[2020-06-03] MEDS: BUDESONIDE/FORMOTEROL 160-4.5 INHALER 6 GM INH SCH ×2 (09:30→21:40)
[2020-06-03] MEDS ORDERED: LEVOFLOXACIN INJ 750 MG in PREMIX 1 EACH IV SCH (18:00)
[2020-06-04] MEDS: ACETAMINOPHEN 325 MG TABLET PO PRN ×2 (00:30→05:50)
[2020-06-04 04:53] LABS: Basophils # 0.1 10*3/uL (0.0-0.2); Basophils % 0.5 % (0.0-0.8); Eosinophils # 0.1 10*3/uL (0.0-0.87); Eosinophils % 0.5 % (0.00-10.9); Hematocrit 33.5 VOL% (35.7-47.0); Hemoglobin 11.1 GM/DL (12.0-16.0); Immature Granulocytes % 2.2 %; Immature Granulocytes Absolute 0.59 #; Lymphocytes # 1.1 10*3/uL (1.4-4.0); Lymphocytes % 4.2 % (21.3-54.2); Mean Corpuscular HGB Conc 33.1 GM/DL (32-36); Mean Platelet Volume 11.1 FL (9.6-12.0); Monocytes % 5.6 % (1.7-12.7); NRBC # 0.02 10*3/uL; Platelet Count 372 T/CUMM (130-400); Red Blood Count 4.24 MC/CUMM (3.8-5.5); Red Cell Distribution Width 23.8 % (9.3-17.3)
[2020-06-04 05:13] LABS: Band Neutrophils 5 % (0-10); Bilirubin,Total 0.5 MG/DL (0.2-1.0); Burr Cells Slight; Calcium 8.8 MG/DL (8.5-10.1); Hypochromasia 1+; Lymphocytes 6 % (20-55); Nucleated Red Blood Cells 1 (0-5); Osmolality,Calculated 258.2 MOS/KG (273-304); Ovalocytes Slight; Platelet Estimate Adequate; Segmented Neutrophils 84 % (50-85); Total Cells Counted 100; Total Protein 6.2 G/DL (6.4-8.3)
[2020-06-04 05:14] LABS: Microcytosis Slight
[2020-06-04] MEDS: LEVOTHYROXINE 137 MCG TABLET PO SCH (05:41)
[2020-06-04] MEDS: ONDANSETRON 4 MG/2 ML VIAL IV PRN (05:54)
[2020-06-04] MEDS ORDERED: AMIKACIN 300 MG in SODIUM CHLORIDE 0.9% 100 ML IV SCH (06:00)
[2020-06-04] MEDS: METOCLOPRAMIDE 10 MG TABLET PO SCH ×4 (09:07→20:36)
[2020-06-04] MEDS: VENLAFAXINE 75 MG TABLET PO SCH ×2 (09:07→20:35)
[2020-06-04] MEDS: DILTIAZEM CD 120 MG CAPSULE PO SCH (09:07)
[2020-06-04] MEDS: POTASSIUM CHLORIDE 20 MEQ TABLET PO SCH (09:07)
[2020-06-04] MEDS: PRIMIDONE 50 MG TABLET PO SCH ×2 (09:07→20:36)
[2020-06-04] MEDS: MAGNESIUM CHLORIDE 64 MG TABLET PO SCH ×2 (09:07→20:36)
[2020-06-04] MEDS: AMIODARONE 200 MG TABLET PO SCH ×2 (09:07→20:35)
[2020-06-04] MEDS: BUDESONIDE/FORMOTEROL 160-4.5 INHALER 6 GM INH SCH ×2 (09:08→20:36)
[2020-06-04] MEDS: MUPIROCIN 2% OINT 22 GM TUBE TOP SCH ×3 (09:08→20:35)
[2020-06-04] MEDS: THEOPHYLLINE ER 300 MG TABLET PO SCH (09:08)
[2020-06-04] MEDS: NYSTATIN POWDER 15 GM BOTTLE TOP SCH ×3 (09:08→20:36)
[2020-06-04] MEDS: ENOXAPARIN 40 MG/0.4 ML SYRINGE SUBCUT SCH (09:10)
[2020-06-04] MEDS: predniSONE 5 MG TABLET PO SCH (09:11)
[2020-06-04] MEDS ORDERED: HYDROmorphone 2 MG/1 ML VIAL IV PRN (09:32)
[2020-06-04] MEDS ORDERED: metroNIDAZOLE INJ 500 MG in PREMIX 1 EACH IV SCH (11:00)
[2020-06-04] MEDS ORDERED: FUROSEMIDE 40 MG/4 ML VIAL IV ONE (11:30)
[2020-06-04] MEDS ORDERED: NOREPINEPHRINE 8 MG in SODIUM CHLORIDE 0.9% 242 ML IV PRN (11:50)
[2020-06-04] MEDS ORDERED: SODIUM CHLORIDE 0.9% 1,000 ML IV ONE ×2 (11:50→21:59)
[2020-06-04] MEDS ORDERED: NOREPINEPHRINE 4 MG/4 ML VIAL IV ONE (11:51)
[2020-06-04] MEDS ORDERED: ETOMIDATE 20 MG/10 ML VIAL IV ONE ×2 (11:55→11:59)
[2020-06-04] MEDS ORDERED: SUCCINYLCHOLINE 200 MG/10 ML VIAL ONE (11:56)
[2020-06-04] MEDS ORDERED: SUCCINYLCHOLINE 200 MG/10 ML VIAL IV ONE (11:59)
[2020-06-04] MEDS ORDERED: POTASSIUM CHLORIDE 20 MEQ/15 ML UDCUP NG PRN (12:30)
[2020-06-04 12:51] LABS: Basophils # 0.2 10*3/uL (0.0-0.2); Basophils % 0.5 % (0.0-0.8); Eosinophils # 0.1 10*3/uL (0.0-0.87); Eosinophils % 0.2 % (0.00-10.9); Hematocrit 35.5 VOL% (35.7-47.0); Hemoglobin 10.8 GM/DL (12.0-16.0); Immature Granulocytes % 3.1 %; Immature Granulocytes Absolute 0.98 #; Lymphocytes % 9.7 % (21.3-54.2); Mean Corpuscular HGB Conc 30.4 GM/DL (32-36); Mean Corpuscular Volume 85.3 FL (87-102); Mean Platelet Volume 10.7 FL (9.6-12.0); Monocytes % 4.7 % (1.7-12.7); NRBC # 0.05 10*3/uL; Neutrophils % 81.8 % (38.7-73.9); Platelet Count 317 T/CUMM (130-400); Red Blood Count 4.16 MC/CUMM (3.8-5.5); Red Cell Distribution Width 24.7 % (9.3-17.3); White Blood Count 31.1 T/CUMM (4-12)
[2020-06-04 13:05] LABS: Bilirubin,Urine Negative (Negative); Blood, Urine Small mg/dL (Negative); Glucose,Urine (UA) Negative (Negative); Ketones,Urine Negative (Negative); Nitrite,Urine Negative (Negative); Protein,Urine 30 MG/DL; RBC,Urine 82 /HPF (0-4); Squamous Epithelial Cell,Urine Few /HPF (0-10); Urine Appearance CLOUDY (Clear); Urine Color Yellow (Yellow); Urine Specific Gravity 1.031 (1.001-1.035); Urine Urobilinogen < 2.0 EU/DL (0.2-1.0); WBC,Urine 667 /HPF (0-6)
[2020-06-04 13:10] LABS: Band Neutrophils 3 % (0-10); Blood Urea Nitrogen 27 MG/DL (7-18); Calcium 8.3 MG/DL (8.5-10.1); Estimated Glom Filtration Rate 26 ML/MIN; Glucose 97 MG/DL (74-106); Hypochromasia 1+; Lymphocytes 11 % (20-55); Osmolality,Calculated 264.8 MOS/KG (273-304); Platelet Estimate Adequate; Segmented Neutrophils 81 % (50-85); Total Cells Counted 100
[2020-06-04 13:11] LABS: Microcytosis Slight; Ovalocytes Slight
[2020-06-04 13:15] LABS: Troponin I 0.068 NG/ML (0.00-0.045)
[2020-06-04 15:48] LABS: ABG Base Excess -13.9 MMOL/L (-2.5-2.5); ABG HCO3 13.8 MMOL/L (20-26); ABG Oxygen Saturation 98.2 % (95-100); ABG PCO2 29.6 MM HG (35-48); ABG PH 7.237 (7.35-7.45); ABG TCO2 11.5 MMOL/L (23-27)
[2020-06-04] MEDS ORDERED: SODIUM CHLORIDE 0.9% 2,150 ML IV ONE (16:08)
[2020-06-04] MEDS ORDERED: SODIUM BICARBONATE 50 MEQ/50 ML VIAL IV ONE ×3 (16:10→23:49)
[2020-06-04] MEDS: THEOPHYLLINE 5.33 MG/ML 30 ML/BOTTLE NG SCH ×2 (16:50→20:35)
[2020-06-04] MEDS: MEROPENEM 500 MG in SODIUM CHLORIDE 0.9% 100 ML IV SCH (17:08)
[2020-06-04] MEDS: SODIUM BICARB INJ 150 MEQ in DEXTROSE 5% 1,000 ML IV SCH ×2 (18:14→23:01)
[2020-06-04] MEDS: NOREPINEPHRINE 16 MG in SODIUM CHLORIDE 0.9% 234 ML IV PRN (19:06)
[2020-06-04] MEDS ORDERED: LACTATED RINGERS 1,000 ML IV ONE (19:08)
[2020-06-04 19:41] LABS: ABG Base Excess -19.3 MMOL/L (-2.5-2.5); ABG Oxygen Saturation 95.4 % (95-100); Allen Test Positive; Pt O2 Delivery Device Ventilator
[2020-06-04 19:44] LABS: ABG PH 7.098 (7.35-7.45)
[2020-06-04] MEDS ORDERED: MIDAZOLAM 2 MG/2 ML VIAL ONE (20:14)
[2020-06-04] MEDS ORDERED: ROCURONIUM 50 MG/5 ML VIAL IV ONE (20:14)
[2020-06-04] MEDS ORDERED: HEPARIN/NACL 0.9% 2 UNITS/ML 500 ML IV ONE (20:18)
[2020-06-04] MEDS: ATORVASTATIN 40 MG TABLET PO SCH (20:35)
[2020-06-04] MEDS: DONEPEZIL 10 MG TABLET PO SCH (20:35)
[2020-06-04 20:49] LABS: Albumin 1.2 G/DL (3.4-5.0); Bilirubin,Total 0.4 MG/DL (0.2-1.0); Calcium 7.1 MG/DL (8.5-10.1); Osmolality,Calculated 270.2 MOS/KG (273-304); Total Protein 3.8 G/DL (6.4-8.3)
[2020-06-04 20:58] LABS: INR 1.5; PT Patient Result 16.1 SECS (9.8-11.9); Partial Thromboplastin Time 88.5 SECS (23.9-33.8)
[2020-06-04] MEDS ORDERED: PANTOPRAZOLE 40 MG VIAL IV SCH (21:00)
[2020-06-04 21:06] LABS: Basophils # 0.1 10*3/uL (0.0-0.2); Basophils % 0.5 % (0.0-0.8); Eosinophils % 0.1 % (0.00-10.9); Hematocrit 28.1 VOL% (35.7-47.0); Hemoglobin 8.2 GM/DL (12.0-16.0); Immature Granulocytes Absolute 0.88 #; Lymphocytes # 1.2 10*3/uL (1.4-4.0); Lymphocytes % 7.9 % (21.3-54.2); Mean Corpuscular HGB Conc 29.2 GM/DL (32-36); Mean Corpuscular Volume 88.6 FL (87-102); Mean Platelet Volume 11.2 FL (9.6-12.0); Monocytes % 4.7 % (1.7-12.7); NRBC # 0.07 10*3/uL; Neutrophils % 80.8 % (38.7-73.9); Platelet Count 214 T/CUMM (130-400); Red Blood Count 3.17 MC/CUMM (3.8-5.5); Red Cell Distribution Width 25.2 % (9.3-17.3); White Blood Count 14.6 T/CUMM (4-12)
[2020-06-04 21:12] LABS: ABG Base Excess -19.9 MMOL/L (-2.5-2.5); ABG HCO3 9.7 MMOL/L (20-26); ABG Oxygen Saturation 97.2 % (95-100); ABG PCO2 36.9 MM HG (35-48); ABG TCO2 9.7 MMOL/L (23-27); Glucose Heart Surgery 68 MG/DL (74-106); Hematocrit Heart Surgery 27.3 PERCENT (37-47); Hemoglobin Heart Surgery 8.8 G/DL (12.0-16.0); Ionized Calcium Arterial 1.41 MMOL/L (1.21-1.46); PCO2 Patient Temp Arterial 36.9 MMHG; PH Patient Temp Arterial 7.037; Patient Temperature 37 CELCIUS; Potassium Heart/CVR 5.7 MMOL/L (3.5-5.1); Sodium Heart/CVR 128 MMOL/L (135-145)
[2020-06-04] MEDS ORDERED: HEPARIN 5,000 UNIT/1 ML VIAL ONE (21:14)
[2020-06-04] MEDS: rOPINIRole 1 MG TABLET PO SCH (21:15)
[2020-06-04 21:27] LABS: ABG PH 7.037 (7.35-7.45)
[2020-06-04] MEDS ORDERED: HEPARIN 5,000 UNIT/1 ML VIAL IV ONE (21:34)
[2020-06-04] MEDS ORDERED: HEPARIN 5,000 UNIT/1 ML VIAL IV PRN (21:39)
[2020-06-04] MEDS ORDERED: HEPARIN DRIP 25,000 UNITS/500 ML PREMIX IV SCH (22:00)
[2020-06-04] MEDS ORDERED: CALCIUM CHLORIDE 1,000 MG/10 ML VIAL IV ONE (22:17)
[2020-06-04] MEDS ORDERED: SEVOFLURANE 1 UNIT/15 MINUTE INH ONE (22:18)
[2020-06-04] MEDS ORDERED: SODIUM CHLORIDE 0.9% 1,000 ML IV PRN (22:32)
[2020-06-04] MEDS ORDERED: ALBUMIN 5% 25 GM in PREMIX 1 EACH IV ONE (22:33)
[2020-06-04 23:10] LABS: ABG Base Excess -15.7 MMOL/L (-2.5-2.5); ABG HCO3 12.3 MMOL/L (20-26); ABG Oxygen Saturation 98.3 % (95-100); ABG PCO2 39.3 MM HG (35-48); ABG TCO2 12.4 MMOL/L (23-27)
[2020-06-04 23:12] LABS: ABG PH 7.118 (7.35-7.45)
[2020-06-05] MEDS: SODIUM BICARB INJ 150 MEQ in DEXTROSE 5% 1,000 ML IV SCH ×3 (01:19→06:12)
[2020-06-05] MEDS: THEOPHYLLINE 5.33 MG/ML 30 ML/BOTTLE NG SCH ×2 (01:36→04:13)
[2020-06-05 01:43] LABS: ABG Base Excess -14.9 MMOL/L (-2.5-2.5); ABG HCO3 12.8 MMOL/L (20-26); ABG Oxygen Saturation 98.6 % (95-100); ABG PCO2 40.5 MM HG (35-48); ABG TCO2 13.1 MMOL/L (23-27)
[2020-06-05 01:44] LABS: ABG PH 7.129 (7.35-7.45)
[2020-06-05] MEDS: MEROPENEM 500 MG in SODIUM CHLORIDE 0.9% 100 ML IV SCH (02:05)
[2020-06-05 04:30] LABS: Basophils % 0.2 % (0.0-0.8); Hematocrit 28.9 VOL% (35.7-47.0); Hemoglobin 8.6 GM/DL (12.0-16.0); Immature Granulocytes % 1.6 %; Immature Granulocytes Absolute 0.23 #; Lymphocytes # 1.6 10*3/uL (1.4-4.0); Mean Corpuscular HGB Conc 29.8 GM/DL (32-36); Mean Corpuscular Volume 92.3 FL (87-102); Mean Platelet Volume 11.5 FL (9.6-12.0); Monocytes % 4.1 % (1.7-12.7); NRBC # 0.09 10*3/uL; Neutrophils % 83.1 % (38.7-73.9); Platelet Count 152 T/CUMM (130-400); Red Blood Count 3.13 MC/CUMM (3.8-5.5); Red Cell Distribution Width 24.2 % (9.3-17.3); White Blood Count 14.8 T/CUMM (4-12)
[2020-06-05] MEDS ORDERED: ALBUMIN 5% 25 GM in PREMIX 1 EACH IV ONE (04:57)
[2020-06-05 05:02] LABS: Band Neutrophils 7 % (0-10); Hypochromasia Slight; Lymphocytes 25 % (20-55); Metamyelocytes 4 %; Nucleated Red Blood Cells 8 (0-5); Platelet Estimate Normal; Segmented Neutrophils 51 % (50-85); Total Cells Counted 100
[2020-06-05] MEDS: NOREPINEPHRINE 16 MG in SODIUM CHLORIDE 0.9% 234 ML IV PRN (05:38)
[2020-06-05] MEDS ORDERED: CALCIUM CHLORIDE 1,000 MG/10 ML SYRINGE IV ONE (06:12)
[2020-06-05 06:23] VITALS: BP 63/45
[2020-06-05] MEDS: LEVOTHYROXINE 137 MCG TABLET PO SCH (06:25)
[2020-06-05 07:33] LABS: Albumin 1.4 G/DL (3.4-5.0); Bilirubin,Total 0.4 MG/DL (0.2-1.0); Calcium 7.2 MG/DL (8.5-10.1); Osmolality,Calculated 275.1 MOS/KG (273-304); Total Protein 3.5 G/DL (6.4-8.3)
[2020-06-05] MEDS ORDERED: POTASSIUM CHLORIDE 20 MEQ/15 ML UDCUP NG SCH (09:00)
== END 2020-06-05 07:30 | disposition expired | DRG 329 ==
LOC: EDBD → EDUNIT# → N.ED 15:46 → N.EDINP 23:35 → SUATTDRO 23:35 → N.EDINP 06-03 01:52 → N.3E 06-03 02:26 → N.ICU 06-04 11:45
PROVIDERS: ADMIT Family Medicine; ATTEND Internal Medicine